=== PATIENT | female | born 1980 | race African-American/Black ===

== ENCOUNTER 2016-03-03 19:22 | Emergency (ER) | payer MEDICAID ==
[2016-03-03 19:27] VITALS: BP 99/61
--- NOTE | 2016-03-03 19:35 | ER Document Report ---
ED Medical Screen (RME) - General Stated Complaint: POSSIBLE ABSCESS Mode of Arrival: Ambulatory Information source: Patient Notes: Patient presents to the emergency department with dental pain and swelling. She reports symptoms started this morning. Denies fever has good airway TRAVEL OUTSIDE OF THE [place] IN LAST 30 DAYS: No - Related Data Allergies/Adverse Reactions: iodine [Iodine] Allergy (Verified 01/31/16 11:02) latex [Latex] Allergy (Verified 01/31/16 11:02) Penicillins Allergy (Verified 01/31/16 11:02) povidone-iodine [From Betadine] Allergy (Verified 01/31/16 11:02) Soap [From Betadine] Allergy (Verified 01/31/16 11:02) Past Medical History Psychiatric Medical History: Reports: Hx Depression Infectious Medical History: Reports: Hx HIV - STATES DX WITH HIV IN 2007 - NOT CURRENTLY ON MEDS -- NOT SEEN BY INFECTIOUS DISEASE IN 1 - 2 YEARS - STATES JUST DID NOT GO BACK. Past Surgical History: Reports: Hx Tubal Ligation - Immunizations Hx Diphtheria, Pertussis, Tetanus Vaccination: No Physical Exam - Vital signs Vitals: Temp Pulse Resp BP Pulse Ox 98.4 F 89 16 99/61 L 98 03/03/16 19:26 03/03/16 19:26 03/03/16 19:26 03/03/16 19:26 03/03/16 19:26 Course - Vital Signs Vital signs: Temp Pulse Resp BP Pulse Ox 98.4 F 89 16 99/61 L 98 03/03/16 19:26 03/03/16 19:26 03/03/16 19:26 03/03/16 19:26 03/03/16 19:26
== END 2016-03-03 22:00 | disposition left against medical advice (07) ==
LOC: ER 19:22
DX: K08.89 Other specified disorders of teeth and supporting structures (principal); Z88.3 Allergy status to other anti-infective agents; Z91.040 Latex allergy status; Z88.0 Allergy status to penicillin; Z21 Asymptomatic human immunodeficiency virus [HIV] infection status; Z53.20 Procedure and treatment not carried out because of patient's decision for unspecified reasons
CPT/HCPCS: 99281

== ENCOUNTER 2016-03-23 17:34 | Emergency (ER) | payer MEDICAID ==
--- NOTE | 2016-03-23 18:04 | ER Document Report ---
ED Medical Screen (RME) - General Stated Complaint: SORE THROAT, SWELLING Mode of Arrival: Ambulatory Information source: Patient Notes: Patient complains of white patches to back throat. Patient complains of sore throat for one week. Patient with what appears to be fresh to the posterior pharynx. Patient does not take any antiviral medication. No fever. Patient mildly tachycardic in triage. Patient cachectic in appearance. hx: HIV I have greeted and performed a rapid initial assessment of this patient. A comprehensive ED assessment and evaluation of the patient, analysis of test results and completion of the medical decision making process will be conducted by additional ED providers. TRAVEL OUTSIDE OF THE [place] IN LAST 30 DAYS: No - Related Data Allergies/Adverse Reactions: iodine [Iodine] Allergy (Verified 01/31/16 11:02) latex [Latex] Allergy (Verified 01/31/16 11:02) Penicillins Allergy (Verified 01/31/16 11:02) povidone-iodine [From Betadine] Allergy (Verified 01/31/16 11:02) Soap [From Betadine] Allergy (Verified 01/31/16 11:02) Past Medical History Renal/ Medical History: Denies: Hx Peritoneal Dialysis Psychiatric Medical History: Reports: Hx Depression Infectious Medical History: Reports: Hx HIV - STATES DX WITH HIV IN 2007 - NOT CURRENTLY ON MEDS -- NOT SEEN BY INFECTIOUS DISEASE IN 1 - 2 YEARS - STATES JUST DID NOT GO BACK. Past Surgical History: Reports: Hx Tubal Ligation - Immunizations Hx Diphtheria, Pertussis, Tetanus Vaccination: No Physical Exam - Vital signs Vitals: Temp Pulse Resp BP Pulse Ox 98.6 F 113 H 16 90/57 L 97 03/23/16 17:54 03/23/16 17:54 03/23/16 17:54 03/23/16 17:54 03/23/16 17:54 - General Notes: Thrush to the posterior pharynx Course - Vital Signs Vital signs: Temp Pulse Resp BP Pulse Ox 98.6 F 113 H 16 90/57 L 97 03/23/16 17:54 03/23/16 17:54 03/23/16 17:54 03/23/16 17:54 03/23/16 17:54
[2016-03-23 19:02] LABS: HEMATOCRIT 28.3 % (36.0-47.0); HEMOGLOBIN 9.6 g/dL (12.0-15.5); HGB HCT DIFFERENCE 0.5; MEAN CORPUSCULAR HEMOGLOBIN 29.1 pg (27.0-33.4); MEAN CORPUSCULAR HGB CONC 33.8 g/dL (32.0-36.0); MEAN CORPUSCULAR VOLUME 86 fl (80-97); RED BLOOD COUNT 3.28 10^6/uL (3.72-5.28); RED CELL DISTRIBUTION WIDTH 13.4 % (11.5-14.0); WHITE BLOOD COUNT 2.2 10^3/uL (4.0-10.5)
[2016-03-23 19:12] LABS: ALANINE AMINOTRANSFERASE 25 U/L (9-52); ALKALINE PHOSPHATASE 72 U/L (38-126); ANION GAP 10 (5-19); ASPARTATE AMINO TRANSFERASE 38 U/L (14-36); BILIRUBIN,TOTAL 0.6 mg/dL (0.2-1.3); BLOOD UREA NITROGEN 11 mg/dL (7-20); CARBON DIOXIDE 26 mmol/L (22-30); CHLORIDE 105 mmol/L (98-107); CREATININE RESULT 0.83 mg/dL (0.52-1.25); GLUCOSE 99 mg/dL (75-110); SODIUM 141.2 mmol/L (137-145); TOTAL PROTEIN 7.7 g/dL (6.3-8.2)
[2016-03-23 19:20] LABS: POTASSIUM 2.9 mmol/L (3.6-5.0)
[2016-03-23 19:29] LABS: BAND NEUTROPHILS % (MANUAL) 2 % (3-5); BASOPHILS % (MANUAL) 0 % (0-2); EOSINOPHILS % (MANUAL) 0 % (0-6); LYMPHOCYTES % (MANUAL) 16 % (13-45); TOTAL CELLS COUNTED 100
[2016-03-23 19:31] LABS: OVALOCYTES SLIGHT; POIKILOCYTOSIS SLIGHT; TEAR DROP CELLS SLIGHT
[2016-03-23 19:48] LABS: APPEARANCE,URINE SLIGHTLY-CLOUDY; BILIRUBIN,URINE NEGATIVE (NEGATIVE); GLUCOSE, URINE NEGATIVE (NEGATIVE); KETONES,URINE NEGATIVE (NEGATIVE); LEUKOCYTE ESTERASE,URINE TRACE (NEGATIVE); NITRITE,URINE NEGATIVE (NEGATIVE); PROTEIN,URINE 100 mg/dL (NEGATIVE); URINE SPECIFIC GRAVITY 1.028
[2016-03-23] MEDS ORDERED: POTASSIUM CHLORIDE 20 MEQ/15 ML UDCUP PO ONE (20:44)
--- NOTE | 2016-03-23 21:59 | ER Document Report ---
ED Oral Problem - General Chief Complaint: Sore Throat Stated Complaint: SORE THROAT, SWELLING Mode of Arrival: Ambulatory Notes: patient is a 35 year old female p/w white substance all over the back of her throat and painful swallowing. She state she has had these symptoms for about one week. Denies nausea, vomiting, fevers, headache, nasal congestion, body aches. Patient has a known history of HIV but is not taking any antivirals. She has been noncompliant with follow up in [facility] due to issues with transportation Otherwise, denies any other additional medical problems and denies any daily medications, does not have a PCP TRAVEL OUTSIDE OF THE [place] IN LAST 30 DAYS: No - Related Data Allergies/Adverse Reactions: iodine [Iodine] Allergy (Verified 01/31/16 11:02) latex [Latex] Allergy (Verified 01/31/16 11:02) Penicillins Allergy (Verified 01/31/16 11:02) povidone-iodine [From Betadine] Allergy (Verified 01/31/16 11:02) Soap [From Betadine] Allergy (Verified 01/31/16 11:02) Past Medical History - General Information source: Patient - Social History Smoking Status: Unknown if Ever Smoked Family History: Hypertension, Malignancy Patient has suicidal ideation: No Patient has homicidal ideation: No Renal/ Medical History: Denies: Hx Peritoneal Dialysis Psychiatric Medical History: Reports: Hx Depression Infectious Medical History: Reports: Hx HIV - STATES DX WITH HIV IN 2007 - NOT CURRENTLY ON MEDS -- NOT SEEN BY INFECTIOUS DISEASE IN 1 - 2 YEARS - STATES JUST DID NOT GO BACK. Past Surgical History: Reports: Hx Tubal Ligation - Immunizations Hx Diphtheria, Pertussis, Tetanus Vaccination: No Review of Systems - Review of Systems Constitutional: No symptoms reported EENT: See HPI Cardiovascular: No symptoms reported Respiratory: No symptoms reported Gastrointestinal: No symptoms reported Genitourinary: No symptoms reported Female Genitourinary: No symptoms reported Musculoskeletal: No symptoms reported Skin: No symptoms reported Hematologic/Lymphatic: No symptoms reported Neurological/Psychological: No symptoms reported Physical Exam - Vital signs Vitals: Temp Pulse Resp BP Pulse Ox 98.6 F 113 H 16 90/57 L 97 03/23/16 17:54 03/23/16 17:54 03/23/16 17:54 03/23/16 17:54 03/23/16 17:54 - General General appearance: Appears well In distress: None Notes: Thin, cachectic - HEENT Head: Normocephalic, Atraumatic Eyes: Normal Conjunctiva: Normal Ears: Normal Nasal: Normal Mouth/Lips: Normal Pharynx: Other - white exudate covering posterior pharynx, tonsils, uvula and roof of mouth. able to scape of without difficulty or erythematous base off the roof of her mouth Neck: Normal. No: Anterior cervical chain, Posterior cervical chain - Respiratory Respiratory status: No respiratory distress Chest status: Nontender Breath sounds: Normal Chest palpation: Normal - Cardiovascular Rhythm: Regular Heart sounds: Normal auscultation, S1 appreciated, S2 appreciated Gallop: None auscultated Pulses: Normal: Radial Normal capillary refill: Yes - Abdominal Inspection: Normal Distension: No distension Bowel sounds: Normal Tenderness: Nontender Organomegaly: No organomegaly - Extremities General upper extremity: Normal inspection, Normal strength, Other - very thin with minimal muscle mass General lower extremity: Normal inspection, Normal strength, Other - Neurological Neuro grossly intact: Yes Cognition: Normal Orientation: AAOx4 [place] Coma Scale Eye Opening: Spontaneous [place] Coma Scale Verbal: Oriented Speech: Normal - Psychological Associated symptoms: Normal affect, Normal mood - Skin Skin Temperature: Warm Skin Moisture: Dry Skin Color: Normal Skin Turgor: Elastic Skin irregularity: Lesion Location of irregularity: Generalized Character of irregularity: Macular Course - Re-evaluation Re-evalutation: 03/23/16 22:30 patient is a 35 year old female PMH significant for unmanaged AIDS who is HDS, NAD and afebrile. history, physical exam and labs reveal mild hypokalemia, oral and esophageal candidiasis and UTI. Hypokalemia treated with PO and encouraged to incorporate into her diet. Will d/c home with PO nystatin and bactrim. Since patient has been noncompliant with HIV follow up, her CDA counts are likely to be very low. Have discussed with patient the importance of following up with [facility] as well as receiving aid from [facility] for [facility]. Patient expresses understanding and agrees with plan. - Vital Signs Vital signs: Temp Pulse Resp BP Pulse Ox 98.1 F 91 16 94/61 L 99 03/23/16 21:38 03/23/16 21:38 03/23/16 21:38 03/23/16 21:38 03/23/16 21:38 - Laboratory Result Diagrams: 03/23/16 18:35 03/23/16 18:35 Laboratory results interpreted by me: 03/23/16 03/23/16 03/23/16 18:35 18:35 18:35 WBC 2.2 L RBC 3.28 L Hgb 9.6 L Hct 28.3 L Plt Count 91 L Band Neutrophils % 2 L Abs Lymphs (Manual) 0.4 L Potassium 2.9 L* AST 38 H Urine Protein 100 H Urine Blood MODERATE H Urine Urobilinogen 4.0 H Ur Leukocyte Esterase TRACE H Urine Ascorbic Acid 20 H Discharge - Discharge Clinical Impression: Thrush of mouth and esophagus UTI (urinary tract infection) Qualifiers: Urinary tract infection type: acute cystitis Hematuria presence: without hematuria Qualified Code(s): N30.00 - Acute cystitis without hematuria Condition: Stable Disposition: HOME, SELF-CARE Instructions: Oral Thrush ([facility]), Nystatin ([facility]), Urinary Tract Infection ([facility]) , Trimethoprim-Sulfa ([facility]) Additional Instructions: -Please call [facility] to set up an appointment with Infectious Disease to be evaluated for your HIV/AIDS status [facility] Department of Infectious Disease [address] [place] [address] The HIV Care Team [facility] [place] [address] Office -For transportation, please call [facility] Department of Check Examiner for information on Medicaid transport -If you need assistance for other resources (ie transportation), you can call [facility] Social department at Prescriptions: Nystatin [Mycostatin 500,000 Unit/5 ml Susp Udcup] 500,000 unit PO QID #20 udc Sulfamethoxazole/Trimethoprim [Bactrim Ds Tablet] 1 each PO BID 5 Days
[2016-03-23] MEDS ORDERED: NYSTATIN 500000 UNIT/5 ML UDCUP PO ONE (22:24)
[2016-03-23] MEDS ORDERED: SULFAMETHOXAZOLE/TRIMETHOPRIM 800-160 MG TABLET PO ONE (22:25)
[2016-03-23 23:02] VITALS: BP 98/55
== END 2016-03-23 22:59 | disposition home or self-care (01) ==
LOC: ER 17:34
DX: N30.00 Acute cystitis without hematuria (principal); B37.0 Candidal stomatitis; B37.81 Candidal esophagitis; J02.9 Acute pharyngitis, unspecified
CPT/HCPCS: 99283; 36415; 87040; 87070; 87086; 87880; 83735; 84703; 85025; 80053; 81001; J3490 ×3

== ENCOUNTER 2016-04-25 10:33 | Emergency (ER) | payer MEDICAID ==
[2016-04-25] MEDS ORDERED: ONDANSETRON 4 MG TAB.RAPDIS PO ONE (10:38)
[2016-04-25] MEDS ORDERED: NORMAL SALINE 1000 ML 1,000 ML IV ONE ×2 (10:40→13:14)
[2016-04-25] MEDS ORDERED: ONDANSETRON HCL INJ/PF 4 MG/2 ML SDV IV ONE (10:40)
--- NOTE | 2016-04-25 10:41 | ER Document Report ---
ED Medical Screen (RME) - General Stated Complaint: VOMITING, DIZZINESS Mode of Arrival: Ambulatory Information source: Patient Notes: Patient presents with vomiting for the past 3 days. Report her boys were sick with the same virus. She reports she is able to drink fluids without problems. Anytime she eats she vomits. Denies fever and diarrhea. Was sick with the same sx three weeks, LMP at the beginning of Mar.. HR 120-140. Denies abdominal/ chest pain. I have greeted and performed a rapid initial assessment of this patient. A comprehensive ED assessment and evaluation of the patient, analysis of test results and completion of the medical decision making process will be conducted by additional ED providers. TRAVEL OUTSIDE OF THE [place] IN LAST 30 DAYS: No - Related Data Allergies/Adverse Reactions: iodine [Iodine] Allergy (Verified 04/25/16 10:38) latex [Latex] Allergy (Verified 04/25/16 10:38) Penicillins Allergy (Verified 04/25/16 10:38) povidone-iodine [From Betadine] Allergy (Verified 04/25/16 10:38) Soap [From Betadine] Allergy (Verified 04/25/16 10:38) Past Medical History Renal/ Medical History: Denies: Hx Peritoneal Dialysis Psychiatric Medical History: Reports: Hx Depression Infectious Medical History: Reports: Hx HIV - STATES DX WITH HIV IN 2007 - NOT CURRENTLY ON MEDS -- NOT SEEN BY INFECTIOUS DISEASE IN 1 - 2 YEARS - STATES JUST DID NOT GO BACK. Past Surgical History: Reports: Hx Tubal Ligation - Immunizations Hx Diphtheria, Pertussis, Tetanus Vaccination: No
--- NOTE | 2016-04-25 10:52 | ER Document Report ---
ED GI/ - General Chief Complaint: Nausea/Vomiting Stated Complaint: VOMITING, DIZZINESS Mode of Arrival: Ambulatory Notes: The patient is a 35 her old female, past medical history HIV (unknown CD4/viral load, hasn't seen ID doctor in 2 years and not on medications, appointment in one month with Kyung BENNETT), presents with 3 days of nausea and vomiting about 3 times daily. Her 2 sons has similar symptoms. She denies fevers, hematemesis, abdominal pain, chest pain, shortness of breath, cough, diarrhea or urinary symptoms. TRAVEL OUTSIDE OF THE [place] IN LAST 30 DAYS: No - Related Data Allergies/Adverse Reactions: iodine [Iodine] Allergy (Verified 04/25/16 10:38) latex [Latex] Allergy (Verified 04/25/16 10:38) Penicillins Allergy (Verified 04/25/16 10:38) povidone-iodine [From Betadine] Allergy (Verified 04/25/16 10:38) Soap [From Betadine] Allergy (Verified 04/25/16 10:38) Past Medical History - General Information source: Patient - Social History Smoking Status: Current Every Day Smoker Chew tobacco use (# tins/day): No Frequency of alcohol use: None Drug Abuse: None Family History: Hypertension, Malignancy Patient has suicidal ideation: No Patient has homicidal ideation: No Renal/ Medical History: Denies: Hx Peritoneal Dialysis Psychiatric Medical History: Reports: Hx Depression Infectious Medical History: Reports: Hx HIV - STATES DX WITH HIV IN 2007 - NOT CURRENTLY ON MEDS -- NOT SEEN BY INFECTIOUS DISEASE IN 1 - 2 YEARS - STATES JUST DID NOT GO BACK. Past Surgical History: Reports: Hx Tubal Ligation - Immunizations Hx Diphtheria, Pertussis, Tetanus Vaccination: No Review of Systems - Review of Systems Notes: REVIEW OF SYSTEMS: CONSTITUTIONAL: -fevers, -chills EENT: -eye pain, -difficulty swallowing, -nasal congestion CARDIOVASCULAR:-chest pain, -syncope. RESPIRATORY: -cough, -SOB GASTROINTESTINAL: -abdominal pain, +nausea, +vomiting, -diarrhea GENITOURINARY: -dysuria, -hematuria MUSCULOSKELETAL: -back pain, -neck pain SKIN: -rash or skin lesions. HEMATOLOGIC: -easy bruising or bleeding. LYMPHATIC: -swollen, enlarged glands. NEUROLOGICAL: +lightheadedness, -altered mental status or loss of consciousness , -headache, -neurologic symptoms PSYCHIATRIC: -anxiety, -depression. ALL OTHER SYSTEMS REVIEWED AND NEGATIVE. Physical Exam - Vital signs Vitals: Resp 11 L 04/25/16 10:58 - Notes Notes: PHYSICAL EXAMINATION: GENERAL: Well-appearing, well-nourished and in no acute distress. HEAD: Atraumatic, normocephalic. EYES: Pupils equal round and reactive to light, extraocular movements intact, sclera anicteric, conjunctiva are normal. ENT: nares patent, oropharynx clear without exudates. Moist mucous membranes. NECK: Normal range of motion, supple without lymphadenopathy LUNGS: Breath sounds clear to auscultation bilaterally and equal. No wheezes rales or rhonchi. HEART: Tachycardic. Regular rhythm. ABDOMEN: Soft, nontender, normoactive bowel sounds. No guarding, no rebound. No masses appreciated. EXTREMITIES: Normal range of motion, no pitting or edema. No cyanosis. NEUROLOGICAL: Cranial nerves grossly intact. Normal speech, normal gait. Normal sensory, motor, and reflex exams. PSYCH: Normal mood, normal affect. SKIN: Warm, Dry, normal turgor, no rashes or lesions noted. Course - Re-evaluation Re-evalutation: 04/25/16 12:22 Pt with no abdominal pain or tenderness. Patient no longer feeling nauseous and is tolerating fluids. She is not feeling lightheaded and is asymptomatic at this time. Repeat abdominal exam reveals no tenderness. Labs and urine are unremarkable other than her potassium is 3.1 which is higher than her prior value of 2.6. Will replete her with potassium and send her home with [facility]. Instructed her to drink plenty of fluids and eat bananas and keep her appointment with [facility] [place]. Given return precautions and she understands. - Vital Signs Vital signs: Temp Pulse Resp BP Pulse Ox 18 95/59 L 100 04/25/16 12:01 04/25/16 12:00 04/25/16 12:01 - Laboratory Result Diagrams: 04/25/16 11:10 04/25/16 11:10 Laboratory results interpreted by me: 04/25/16 04/25/16 04/25/16 10:59 11:10 11:10 RBC 3.02 L Hgb 8.4 L Hct 25.8 L Plt Count 140 L Seg Neuts % (Manual) 82 H Lymphocytes % (Manual) 6 L Abs Lymphs (Manual) 0.3 L Potassium 3.1 L POC Glucose 129 H AST 38 H Urine Protein Urine Ketones Urine Urobilinogen 04/25/16 11:43 RBC Hgb Hct Plt Count Seg Neuts % (Manual) Lymphocytes % (Manual) Abs Lymphs (Manual) Potassium POC Glucose AST Urine Protein >=500 H Urine Ketones TRACE H Urine Urobilinogen 4.0 H - Diagnostic Test Radiology reviewed: Image reviewed, Reports reviewed Radiology results interpreted by me: CXR: NAD - EKG Interpretation by Me EKG shows normal: Sinus rhythm, [place], Intervals, QRS Complexes, ST-T Waves Rate: Tachycardia Discharge - Discharge Clinical Impression: Nausea and vomiting Qualifiers: Vomiting type: unspecified Vomiting Intractability: non-intractable Qualified Code(s): R11.2 - Nausea with vomiting, unspecified Condition: Good Disposition: HOME, SELF-CARE Additional Instructions: VOMITING: Vomiting (or nausea without vomiting) can be caused by many other different problems. It can mean that something's wrong with the stomach, such as ulcers or inflammation or the intestinal tract, such as appendicitis. But it can also be a symptom of a problem that has nothing to do with the stomach or intestines. Vomiting is common with severe headaches, earaches, tonsillitis, and kidney infections, etc. We see it with pneumonia or heart attacks. Drugs can cause nausea and vomiting. Many abdominal problems cause vomiting; for example, gallstones, kidney stones, pancreatitis, and intestinal obstruction ( blocked bowels). In most cases, curing the vomiting depends on fixing the problem that caused it. For temporary relief, we may use an anti-nausea medicine. For home use, we can prescribe suppositories, chewable pills, pills that dissolve in the mouth, or liquid anti-nausea drugs. If the vomiting seems to be caused by a problem in the stomach, acid-suppressing drugs may be prescribed as well. It's important to avoid dehydration. Sip small amounts of clear liquids ( soft drinks, tea, broth, etc) . Try to take fluids frequently even if you are vomiting to prevent dehydration. Take increasing amounts of fluid and when liquids are being consumed successfully, advance to small amounts of bland food (toast, soups, mashed potatoes, etc.) until you are able to resume a regular diet. Avoid aspirin, tobacco, and alcohol. If the vomiting worsens, if the problem that's making you vomit worsens, or if there's evidence of bleeding in the stomach (such as black, tarry stool, or bloody or black vomit), you should return immediately. Also, return if abdominal pain worsens or becomes localized to one area or you develop high fever. Call your doctor if you aren't improved in 24 hours. VIRAL SYNDROME: The physician has diagnosed a viral infection. Viruses not only cause "colds," but can cause many different symptoms including generalized aching, fever, headache, cough, diarrhea, nausea, vomiting, and fatigue. The treatment, for the most part, is simply relief of symptoms. This means that antibiotics are usually not given. Rest, fluids, pain medications and, occasionally, medication for the specific symptoms that are most bothersome will be prescribed. Use good handwashing to avoid passing the virus to others. Shared toys should be cleaned with disinfectant. Clean the toilets, sinks, and counter surfaces in bathrooms. Launder clothing in hot water. Contact the physician if you develop any new or unusual symptoms such as severe headache, stiff neck, high fever, chest pain, productive cough, or shortness of breath. You should be rechecked if you don't see marked improvement within seven to 10 days. INTRAVENOUS (I V) FLUIDS: As part of your care today, you received intravenous (IV) fluids. IV fluids are administered to patients who are dehydrated or to those who have certain chemical (electrolyte) abnormalities that need correcting. ANTINAUSEA MEDICATION: You have been given a medication to suppress nausea and vomiting. This type of medication can be given as a shot, pill, or suppository. It will usually last for many hours. Pills and shots usually last six to eight hours. For the typical illness, only one or two doses of the medication may be necessary. Mild lightheadedness may occur. This type of medicine can cause drowsiness. Do not drive or operate dangerous machinery while under its influence. Do not mix with alcohol. See your doctor at once if you have muscle spasms or tightness, or uncontrollable motions (particularly of the neck, mouth, or jaw). Persistent vomiting or severe lightheadedness should also be evaluated by the physician. FOLLOW-UP CARE: If you have been referred to a physician for follow-up care, call the physician s office for an appointment as you were instructed or within the next two days. If you experience worsening or a significant change in your symptoms, notify the physician immediately or return to the Emergency Department at any time for re-evaluation. HYPOKALEMIA: You have an abnormally decreased level of serum potassium. Hypokalemia may cause weakness, fatigue, or heart rhythm abnormalities. Sometimes there are no symptoms at all. Usually, low serum potassium is due to taking diuretics ( water pills). It can also be due to excessive vomiting or diarrhea. If no obvious cause is evident, further evaluation will be necessary. Treatment is usually oral potassium supplements. Take these exactly as prescribed. You may also want to select foods which are naturally high in potassium -- fruits (such as bananas, cantaloupe, grapes, oranges, prunes, tomatoes), fresh vegetables (potatoes, spinach, beans, peas), orange or tomato juice, tomato pasta sauce, milk, fish (halibut, tuna, salmon, jeremías) A follow-up blood test is usually performed to assure that the potassium is returning to normal. Call the physician if you suffer severe weakness, muscle twitching or cramping, palpitations (pounding or irregular heartbeat), or any other new or alarming symptoms. POTASSIUM: A potassium-containing medication has been prescribed. This is usually used to treat potassium depletion caused by diuretics or by vomiting and diarrhea. This type of medicine is available in many forms, including elixirs, powders, fruity drinks, and pills. If one type is not working out for you, another can be substituted. Potassium can cause stomach upset. This can be prevented by taking it with meals. Do not take more than your doctor recommends. Notify your doctor if you develop repeated vomiting, black or bloody stool , severe weakness or numbness. FOODS HIGH IN POTASSIUM: baked potato with skin 1080 mg tomato pasta sauce, 1 cup 940 sweet potato with skin 690 orange juice, 1 cup 480 northern irish chard 480 tuna, 3 oz 480 cantaloupe, 1 cup 430 banana 420 spinach 420 yogurt, plain, nofat, 6 oz 400 milk, 1 cup 370 watermelon, 2 cups 340 tomato, 1/2 cup 210 Other foods high in potassium are most other fruits and vegetables and fish. FOLLOW-UP CARE: If you have been referred to a physician for follow-up care, call the physician s office for an appointment as you were instructed or within the next two days. If you experience worsening or a significant change in your symptoms, notify the physician immediately or return to the Emergency Department at any time for re-evaluation. Prescriptions: Ondansetron [Zofran Odt 4 mg Tablet] 1 - 2 tab PO Q4H PRN #15 tab.rapdis PRN Reason: For Nausea/Vomiting Referrals: GLADIS STAUFFER MD [Primary Care Provider] - Follow up as needed
[2016-04-25 11:43] LABS: HEMATOCRIT 25.8 % (36.0-47.0); HEMOGLOBIN 8.4 g/dL (12.0-15.5); HGB HCT DIFFERENCE -0.6; MEAN CORPUSCULAR HEMOGLOBIN 27.8 pg (27.0-33.4); MEAN CORPUSCULAR HGB CONC 32.5 g/dL (32.0-36.0); MEAN CORPUSCULAR VOLUME 85 fl (80-97); RED BLOOD COUNT 3.02 10^6/uL (3.72-5.28); RED CELL DISTRIBUTION WIDTH 13.9 % (11.5-14.0); WHITE BLOOD COUNT 4.2 10^3/uL (4.0-10.5)
[2016-04-25 11:49] LABS: VENOUS BLOOD BASE EXCESS 0.1 mmol/L; VENOUS BLOOD HCO3 25.6 mmol/L (20-32); VENOUS BLOOD PCO2 44.5 mmHg (35-63); VENOUS BLOOD PH 7.38 (7.30-7.42)
[2016-04-25 12:00] LABS: ALANINE AMINOTRANSFERASE 23 U/L (9-52); ALBUMIN 3.6 g/dL (3.5-5.0); ALKALINE PHOSPHATASE 56 U/L (38-126); ANION GAP 10 (5-19); ASPARTATE AMINO TRANSFERASE 38 U/L (14-36); BILIRUBIN,TOTAL 0.7 mg/dL (0.2-1.3); BLOOD UREA NITROGEN 16 mg/dL (7-20); CARBON DIOXIDE 26 mmol/L (22-30); CHLORIDE 104 mmol/L (98-107); CREATININE RESULT 0.87 mg/dL (0.52-1.25); GLUCOSE 109 mg/dL (75-110); POTASSIUM 3.1 mmol/L (3.6-5.0); SODIUM 139.7 mmol/L (137-145); TOTAL PROTEIN 7.9 g/dL (6.3-8.2)
[2016-04-25 12:04] LABS: BAND NEUTROPHILS % (MANUAL) 5 % (3-5); BASOPHILS % (MANUAL) 0 % (0-2); EOSINOPHILS % (MANUAL) 0 % (0-6); LYMPHOCYTES % (MANUAL) 6 % (13-45); TOTAL CELLS COUNTED 100
[2016-04-25 12:05] LABS: HYPOCHROMASIA SLIGHT; OVALOCYTES SLIGHT; POIKILOCYTOSIS SLIGHT
[2016-04-25] MEDS ORDERED: POTASSIUM CHLORIDE 20 MEQ/15 ML UDCUP PO ONE (12:05)
[2016-04-25] MEDS ORDERED: POTASSI CL 20 MEQ/50 ML RIDER 50 ML IV ONE (12:06)
[2016-04-25 12:13] LABS: APPEARANCE,URINE SLIGHTLY-CLOUDY; BILIRUBIN,URINE NEGATIVE (NEGATIVE); GLUCOSE, URINE NEGATIVE (NEGATIVE); KETONES,URINE TRACE mg/dL (NEGATIVE); LEUKOCYTE ESTERASE,URINE NEGATIVE (NEGATIVE); NITRITE,URINE NEGATIVE (NEGATIVE); PROTEIN,URINE >=500 mg/dL (NEGATIVE); URINE SPECIFIC GRAVITY 1.019
[2016-04-25] MEDS ORDERED: POTASSIUM CHLORIDE 10 MEQ TABLET.SA PO ONE (12:29)
[2016-04-25 14:05] VITALS: BP 100/69
--- NOTE | 2016-04-25 20:07 | EKG REPORT ---
SEVERITY:- BORDERLINE ECG - SINUS TACHYCARDIA BORDERLINE T ABNORMALITIES, ANT-LAT LEADS : Confirmed by: Isidra Acosta 25-Apr-2016 20:05:48
== END 2016-04-25 14:19 | disposition home or self-care (01) ==
LOC: ER 10:33
DX: R11.2 Nausea with vomiting, unspecified (principal); R00.0 Tachycardia, unspecified; R42 Dizziness and giddiness; F17.200 Nicotine dependence, unspecified, uncomplicated; Z21 Asymptomatic human immunodeficiency virus [HIV] infection status; Z91.040 Latex allergy status; Z88.0 Allergy status to penicillin; Z88.3 Allergy status to other anti-infective agents
CPT/HCPCS: 93005; 99284; 96361; 96374; 36415; 87040; 87086; 82962; 84703; 85025; 80053; 81001; 82803; 83605; 71020; 93010; J2405; J7030

== ENCOUNTER 2016-05-04 09:11 | Inpatient (IN) | payer MEDICAID ==
[2016-05-04] MEDS ORDERED: ONDANSETRON HCL INJ/PF 4 MG/2 ML SDV IV ONE (09:33)
[2016-05-04] MEDS ORDERED: NORMAL SALINE 1000 ML 1,000 ML IV PRN (09:33)
--- NOTE | 2016-05-04 09:35 | ER Document Report ---
ED General - General Stated Complaint: WEAKNESS Mode of Arrival: Medic Information source: Patient, [facility] Records Notes: 35-year-old female history of HIV who has been off her antiretrovirals for the past few months presents with complaints of nausea vomiting for the past one month consistently. Patient denies any fevers denies any diarrhea. Patient notes a 30 pound weight loss in the past month. TRAVEL OUTSIDE OF THE [place] IN LAST 30 DAYS: No - HPI Onset: Other Onset/Duration: Persistent Quality of pain: Achy Severity: Mild Pain Level: 1 Associated symptoms: Nausea, Vomiting Exacerbated by: Denies Relieved by: Denies Similar symptoms previously: Yes Recently seen / treated by doctor: Yes - Related Data Allergies/Adverse Reactions: iodine [Iodine] Allergy (Verified 05/04/16 10:56) latex [Latex] Allergy (Verified 05/04/16 10:56) Penicillins Allergy (Verified 05/04/16 10:56) povidone-iodine [From Betadine] Allergy (Verified 05/04/16 10:56) Soap [From Betadine] Allergy (Verified 05/04/16 10:56) Home Medications: Current Home Medications No Home Medications 05/04/16 [History] Past Medical History - Social History Smoking Status: Never Smoker Cigarette use (# per day): No Chew tobacco use (# tins/day): No Smoking Education Provided: No Family History: Hypertension, Malignancy Renal/ Medical History: Denies: Hx Peritoneal Dialysis Psychiatric Medical History: Reports: Hx Depression Infectious Medical History: Reports: Hx HIV - STATES DX WITH HIV IN 2007 - NOT CURRENTLY ON MEDS -- NOT SEEN BY INFECTIOUS DISEASE IN 1 - 2 YEARS - STATES JUST DID NOT GO BACK. Past Surgical History: Reports: Hx Tubal Ligation - Immunizations Hx Diphtheria, Pertussis, Tetanus Vaccination: No Review of Systems - Review of Systems Notes: REVIEW OF SYSTEMS: CONSTITUTIONAL : Denies fever, chills, or sweats. Denies recent illness. EENT: Denies eye, ear, throat, or mouth pain or symptoms. Denies nasal or sinus congestion or discharge. Denies throat, tongue, or mouth swelling or difficulty swallowing. CARDIOVASCULAR: Denies chest pain. Denies palpitations or racing or irregular heart beat. Denies ankle edema. RESPIRATORY: Denies cough, cold, or chest congestion. Denies shortness of breath, difficulty breathing, or wheezing. GASTROINTESTINAL: Admits nausea vomiting weight loss GENITOURINARY: Denies difficulty urinating, painful urination, burning, frequency, blood in urine, or discharge. FEMALE GENITOURINARY: Denies vaginal bleeding, heavy or abnormal periods, irregular periods. Denies vaginal discharge or odor. MUSCULOSKELETAL: Denies back or neck pain or stiffness. Denies joint pain or swelling. SKIN: Denies rash, lesions or sores. HEMATOLOGIC : Denies easy bruising or bleeding. LYMPHATIC: Denies swollen, enlarged glands. NEUROLOGICAL: Denies confusion or altered mental status. Denies passing out or loss of consciousness. Denies dizziness or lightheadedness. Denies headache. Denies weakness or paralysis or loss of use of either side. Denies problems with gait or speech. Denies sensory loss, numbness, or tingling. Denies seizures. PSYCHIATRIC: Denies anxiety or stress. Denies depression, suicidal ideation, or homicidal ideation. ALL OTHER SYSTEMS REVIEWED AND NEGATIVE. Dictation was performed using [employer] voice recognition software PHYSICAL EXAMINATION: GENERAL: Cachectic appearing female HEAD: Atraumatic, normocephalic. EYES: Pupils equal round and reactive to light, extraocular movements intact, conjunctiva are normal. ENT: Nares patent, oropharynx clear without exudates. Moist mucous membranes. NECK: Normal range of motion, supple without lymphadenopathy LUNGS: Breath sounds clear to auscultation bilaterally and equal. No wheezes rales or rhonchi. HEART: Regular rate and rhythm without murmurs ABDOMEN: Soft, nontender, nondistended abdomen. No guarding, no rebound. No masses appreciated. Female : deferred Musculoskeletal: Normal range of motion, no pitting or edema. No cyanosis. NEUROLOGICAL: Cranial nerves grossly intact. Normal speech, normal gait. Normal sensory, motor exams PSYCH: Normal mood, normal affect. SKIN: Warm, Dry, normal turgor, no rashes or lesions noted. Physical Exam - Vital signs Vitals: Temp Pulse Resp BP Pulse Ox 97.8 F 105 H 20 87/49 L 100 05/04/16 09:17 05/04/16 09:17 05/04/16 09:17 05/04/16 09:17 05/04/16 09:17 Course - Re-evaluation Re-evalutation: 05/04/16 09:34 Patient will be hydrated, there is obvious concerns for aids-related infectious process 05/04/16 12:11 Given how cachectic she is and has not been taking her antiretrovirals, I believe it is appropriate to keep the patient for observation overnight - Vital Signs Vital signs: Temp Pulse Resp BP Pulse Ox 97.8 F 105 H 21 H 105/64 98 05/04/16 09:17 05/04/16 09:17 05/04/16 11:01 05/04/16 11:00 05/04/16 11:01 - Laboratory Result Diagrams: 05/04/16 10:00 05/04/16 10:00 Laboratory results interpreted by me: 05/04/16 05/04/16 10:00 10:00 WBC 3.9 L RBC 3.01 L Hgb 8.3 L Hct 25.4 L RDW 14.2 H Plt Count 114 L Seg Neuts % (Manual) 80 H Band Neutrophils % 7 H Lymphocytes % (Manual) 1 L Metamyelocytes % 1 H Abs Lymphs (Manual) 0.1 L BUN 23 H Est GFR (Non-Af Amer) 58 L AST 47 H Albumin 3.0 L Discharge - Discharge Clinical Impression: Chronic anemia, Human immunodeficiency virus (HIV) infection, Weight loss Nausea and vomiting Qualifiers: Vomiting type: unspecified Vomiting Intractability: non-intractable Qualified Code(s): R11.2 - Nausea with vomiting, unspecified Condition: Fair Disposition: ADMITTED INPATIENT Admitting Provider: Hospitalist Unit Admitted: Medical Floor
[2016-05-04 10:51] LABS: HEMATOCRIT 25.4 % (36.0-47.0); HEMOGLOBIN 8.3 g/dL (12.0-15.5); HGB HCT DIFFERENCE -0.5; MEAN CORPUSCULAR HEMOGLOBIN 27.6 pg (27.0-33.4); MEAN CORPUSCULAR HGB CONC 32.7 g/dL (32.0-36.0); MEAN CORPUSCULAR VOLUME 85 fl (80-97); RED BLOOD COUNT 3.01 10^6/uL (3.72-5.28); RED CELL DISTRIBUTION WIDTH 14.2 % (11.5-14.0); WHITE BLOOD COUNT 3.9 10^3/uL (4.0-10.5)
[2016-05-04 11:15] LABS: ALANINE AMINOTRANSFERASE 34 U/L (9-52); ALKALINE PHOSPHATASE 59 U/L (38-126); ANION GAP 13 (5-19); ASPARTATE AMINO TRANSFERASE 47 U/L (14-36); BILIRUBIN,DIRECT 0.4 mg/dL (0.0-0.4); BILIRUBIN,TOTAL 0.6 mg/dL (0.2-1.3); BLOOD UREA NITROGEN 23 mg/dL (7-20); CALCIUM 8.7 mg/dL (8.4-10.2); CARBON DIOXIDE 22 mmol/L (22-30); CHLORIDE 107 mmol/L (98-107); CREATININE RESULT 1.07 mg/dL (0.52-1.25); GLUCOSE 86 mg/dL (75-110); POTASSIUM 3.7 mmol/L (3.6-5.0); SODIUM 141.7 mmol/L (137-145); TOTAL PROTEIN 6.7 g/dL (6.3-8.2)
[2016-05-04 11:32] LABS: BAND NEUTROPHILS % (MANUAL) 7 % (3-5); BASOPHILS % (MANUAL) 0 % (0-2); EOSINOPHILS % (MANUAL) 0 % (0-6); HYPOCHROMASIA SLIGHT; LYMPHOCYTES % (MANUAL) 1 % (13-45); OVALOCYTES 2+; PLATELET CLUMPS PRESENT; POIKILOCYTOSIS 2+; POLYCHROMASIA SLIGHT; TOTAL CELLS COUNTED 100
[2016-05-04] MEDS ORDERED: DIPHENHYDRAMINE HCL 50 MG/ML VIAL IV ONE (12:44)
[2016-05-04] MEDS ORDERED: METHYLPREDNISOLONE INJ 125 MG/2 ML SDV IV ONE (12:44)
--- NOTE | 2016-05-04 13:09 | EKG REPORT ---
SEVERITY:- ABNORMAL ECG - SINUS TACHYCARDIA NONSPECIFIC T ABNORMALITIES, ANT-LAT LEADS : Confirmed by: Neil Gardiner MD 04-May-2016 13:09:13
[2016-05-04 14:46] LABS: HIV 1/2 AB DIFFERENTIATION HIV PANEL
--- NOTE | 2016-05-04 15:50 | PDOC H&P ---
History of Present Illness Admission Date/PCP: 05/04/16 13:43 GLADIS STAUFFER MD Infectious Disease in [place], [place] Patient complains of: Vomiting and nausea 1 month with 30 pound weight loss History of Present Illness: JOSE LUIS GU is a 35 year old female with a past medical history of HIV who has been off her antiretrovirals for the past few months presents with complaints of nausea vomiting for the past one month consistently. Patient denies any fevers denies any diarrhea. Patient notes a 30 pound weight loss in the past month. The patient received 2 liters of fluid while in the emergency department as well as anti-medics. The patient is noted to be pancytopenic, dehydrated, with low-grade fever. The patient has been referred to the hospitalist remission and management. Past Medical History Psychiatric Medical History: Reports: Depression Hematology: Reports: Anemia Infectious Medical History: Reports: HIV - STATES DX WITH HIV IN 2007 - NOT CURRENTLY ON MEDS -- NOT SEEN BY INFECTIOUS DISEASE IN 1 - 2 YEARS - STATES JUST DID NOT GO BACK. Past Surgical History Past Surgical History: Reports: Tubal Ligation Social History Information Source: Patient Occupation: Unemployed Lives with: Family Smoking Status: Never Smoker Frequency of Alcohol Use: None Hx Recreational Drug Use: No Hx Prescription Drug Abuse: No - Advance Directive Resuscitation Status: Full Code Surrogate healthcare decision maker:: Sister Family History Family History: Hypertension, Malignancy Parental Family History Reviewed: Yes Children Family History Reviewed: Yes Sibling(s) Family History Reviewed.: Yes Medication/Allergy Home Medications: No Home Medications 05/04/16 Allergies/Adverse Reactions: iodine [Iodine] Allergy (Verified 05/04/16 10:56) latex [Latex] Allergy (Verified 05/04/16 10:56) Penicillins Allergy (Verified 05/04/16 10:56) povidone-iodine [From Betadine] Allergy (Verified 05/04/16 10:56) Soap [From Betadine] Allergy (Verified 05/04/16 10:56) Review of Systems Constitutional: PRESENT: fever(s), headache(s), weight loss - Approximately 15- 30 pounds. ABSENT: chills, weight gain Eyes: ABSENT: visual disturbances Ears: ABSENT: hearing changes Cardiovascular: ABSENT: chest pain, dyspnea on exertion, edema, orthropnea, palpitations Respiratory: ABSENT: cough, hemoptysis Gastrointestinal: PRESENT: nausea, vomiting. ABSENT: abdominal pain, constipation, diarrhea, hematemesis, hematochezia Genitourinary: ABSENT: dysuria, hematuria Musculoskeletal: ABSENT: joint swelling Integumentary: ABSENT: rash, wounds Neurological: PRESENT: weakness. ABSENT: abnormal gait, abnormal speech, confusion, dizziness, focal weakness, syncope Psychiatric: ABSENT: anxiety, depression, homidical ideation, suicidal ideation Endocrine: ABSENT: cold intolerance, heat intolerance, polydipsia, polyuria Hematologic/Lymphatic: ABSENT: easy bleeding, easy bruising Physical Exam Vital Signs: Temp Pulse Resp BP Pulse Ox 99.5 F 94 16 95/48 L 96 05/04/16 14:26 05/04/16 14:26 05/04/16 14:26 05/04/16 14:05/04/16 14:26 General appearance: PRESENT: no acute distress, cooperative, thin Exam: Frail cachectic Head exam: PRESENT: atraumatic, normocephalic Eye exam: PRESENT: conjunctiva pink, EOMI, PERRLA. ABSENT: scleral icterus Ear exam: PRESENT: normal external ear exam Mouth exam: PRESENT: moist, tongue midline Neck exam: ABSENT: carotid bruit, JVD, lymphadenopathy, thyromegaly Respiratory exam: PRESENT: clear to auscultation rudy. ABSENT: rales, rhonchi, wheezes Cardiovascular exam: PRESENT: RRR. ABSENT: diastolic murmur, rubs, systolic murmur Pulses: PRESENT: normal dorsalis pedis pul Vascular exam: PRESENT: normal capillary refill GI/Abdominal exam: PRESENT: normal bowel sounds, soft. ABSENT: distended, guarding, mass, organolmegaly, rebound, tenderness Rectal exam: PRESENT: deferred Extremities exam: PRESENT: full ROM. ABSENT: calf tenderness, clubbing, pedal edema Neurological exam: PRESENT: alert, awake, oriented to person, oriented to place , oriented to time, oriented to situation, CN II-XII grossly intact. ABSENT: motor sensory deficit Psychiatric exam: PRESENT: appropriate affect, normal mood. ABSENT: homicidal ideation, suicidal ideation Skin exam: PRESENT: dry, intact, warm. ABSENT: cyanosis, rash Results Laboratory Results: Labs- Last Values WBC 3.9 10^3/uL (4.0-10.5) L 05/04/16 10:00 RBC 3.01 10^6/uL (3.72-5.28) L 05/04/16 10:00 Hgb 8.3 g/dL (12.0-15.5) L 05/04/16 10:00 Hct 25.4 % (36.0-47.0) L 05/04/16 10:00 MCV 85 fl (80-97) 05/04/16 10:00 MCH 27.6 pg (27.0-33.4) 05/04/16 10:00 MCHC 32.7 g/dL (32.0-36.0) 05/04/16 10:00 RDW 14.2 % (11.5-14.0) H 05/04/16 10:00 Plt Count 114 10^3/uL (150-450) L 05/04/16 10:00 Total Counted 100 05/04/16 10:00 Seg Neutrophils % Not Reportable 05/04/16 10:00 Seg Neuts % (Manual) 80 % (42-78) H 05/04/16 10:00 Band Neutrophils % 7 % (3-5) H 05/04/16 10:00 Lymphocytes % Not Reportable 05/04/16 10:00 Lymphocytes % (Manual) 1 % (13-45) L 05/04/16 10:00 Atypical Lymphs % 1 % (0) 05/04/16 10:00 Monocytes % Not Reportable 05/04/16 10:00 Monocytes % (Manual) 10 % (3-13) 05/04/16 10:00 Eosinophils % Not Reportable 05/04/16 10:00 Eosinophils % (Manual) 0 % (0-6) 05/04/16 10:00 Basophils % Not Reportable 05/04/16 10:00 Basophils % (Manual) 0 % (0-2) 05/04/16 10:00 Metamyelocytes % 1 % (0) H 05/04/16 10:00 Absolute Neutrophils Not Reportable 05/04/16 10:00 Abs Neuts (Manual) 3.4 10^3/uL (1.7-8.2) 05/04/16 10:00 Absolute Lymphocytes Not Reportable 05/04/16 10:00 Abs Lymphs (Manual) 0.1 10^3/uL (0.5-4.7) L 05/04/16 10:00 Absolute Monocytes Not Reportable 05/04/16 10:00 Abs Monocytes (Manual) 0.4 10^3/uL (0.1-1.4) 05/04/16 10:00 Absolute Eosinophils Not Reportable 05/04/16 10:00 Absolute Eos (Manual) 0.0 10^3/uL (0.0-0.6) 05/04/16 10:00 Absolute Basophils Not Reportable 05/04/16 10:00 Abs Basophils (Manual) 0.0 10^3/uL (0.0-0.2) 05/04/16 10:00 Dohle Bodies PRESENT 05/04/16 10:00 Clumped Platelets PRESENT 05/04/16 10:00 Large Platelets PRESENT 05/04/16 10:00 Platelet Comment Not Reportable 05/04/16 10:00 Polychromasia SLIGHT 05/04/16 10:00 Hypochromasia SLIGHT 05/04/16 10:00 Poikilocytosis 2+ 05/04/16 10:00 Ovalocytes 2+ 05/04/16 10:00 Sodium 141.7 mmol/L (137-145) 05/04/16 10:00 Potassium 3.7 mmol/L (3.6-5.0) 05/04/16 10:00 Chloride 107 mmol/L (98-107) 05/04/16 10:00 Carbon Dioxide 22 mmol/L (22-30) 05/04/16 10:00 Anion Gap 13 (5-19) 05/04/16 10:00 BUN 23 mg/dL (7-20) H 05/04/16 10:00 Creatinine 1.07 mg/dL (0.52-1.25) 05/04/16 10:00 Est GFR ( Amer) > 60 (>60) 05/04/16 10:00 Est GFR (Non-Af Amer) 58 (>60) L 05/04/16 10:00 Glucose 86 mg/dL (75-110) 05/04/16 10:00 Calcium 8.7 mg/dL (8.4-10.2) 05/04/16 10:00 Total Bilirubin 0.6 mg/dL (0.2-1.3) 05/04/16 10:00 Direct Bilirubin 0.4 mg/dL (0.0-0.4) 05/04/16 10:00 Indirect Bilirubin Not Reportable 05/04/16 10:00 Neonat Total Bilirubin Not Reportable 05/04/16 10:00 AST 47 U/L (14-36) H 05/04/16 10:00 ALT 34 U/L (9-52) 05/04/16 10:00 Alkaline Phosphatase 59 U/L (38-126) 05/04/16 10:00 Total Protein 6.7 g/dL (6.3-8.2) 05/04/16 10:00 Albumin 3.0 g/dL (3.5-5.0) L 05/04/16 10:00 Lipase 171.5 U/L (23-300) 05/04/16 10:00 Impressions: Abdomen/Pelvis CT 05/04/16 12:11 IMPRESSION: Possible noncalcified gallstones. Trace pericholecystic fluid. Consider ultrasound greater detail. Patchy right basilar infiltrate/atelectatic change. Likely small hiatus hernia. Assessment & Plan - Diagnosis (1) HIV (human immunodeficiency virus infection) Is this a current diagnosis for this admission?: YesPlan: Will obtain CD4 and viral load. Will obtain to obtain records from infectious disease. (2) Nausea & vomiting Qualifiers: Vomiting type: unspecified Vomiting Intractability: non-intractable Qualified Code(s): R11.2 - Nausea with vomiting, unspecified Is this a current diagnosis for this admission?: YesPlan: Will admit for hydration as well as anti-medics. Will obtain right upper quadrant ultrasound given the patient's elevation in LFT and previous findings of possible gallstones. Have a high suspicion of AIDS given the patient's overall clinical picture and noncompliance. (3) Dehydration Is this a current diagnosis for this admission?: YesPlan: Will continue to hydrate Selected Entries 05/04/16 05/04/16 09:17 14:26 Temperature 99.5 F Blood Pressure 87/49 L 95/48 L 04/25/16 05/04/16 05/04/16 11:43 10:00 10:00 WBC 3.9 L Hgb 8.3 L Hct 25.4 L BUN 23 H Urine Protein >=500 H Urine Ketones TRACE H (4) Pancytopenia Is this a current diagnosis for this admission?: YesPlan: Most likely secondary to the above. Will obtain urine and blood culture this may be specifically secondary to HIV. (5) Anemia of chronic disease Is this a current diagnosis for this admission?: Yes (6) Noncompliance Is this a current diagnosis for this admission?: Yes - Time Time Spent: 50 to 70 Minutes Medications reviewed and adjusted accordingly: Yes Disposition: The patient is a full code. Pending patient's symptomatology and diagnostic findings will reevaluate in the a.m. - Inpatient Certification Based on my medical assessment, after consideration of the patient's comorbidities, presenting symptoms, or acuity I expect that the services needed warrant INPATIENT care.: Yes I certify that my determination is in accordance with my understanding of Medicare's requirements for reasonable and necessary INPATIENT services [42 CFR 412.3e].: Yes Medical Necessity: Need For IV Fluids, Need For Continuous Telemetry Monitoring Post Hospital Care: D/C or Transfer Summary
[2016-05-04] MEDS: POTASSI CL 20 MEQ/D5-1/2NS 1L 1,000 ML IV PRN (16:11)
[2016-05-04] MEDS: ONDANSETRON HCL INJ/PF 4 MG/2 ML SDV IV PRN ×2 (17:59→21:56)
[2016-05-04 19:07] LABS: APPEARANCE,URINE SLIGHTLY-CLOUDY; BILIRUBIN,URINE NEGATIVE (NEGATIVE); GLUCOSE, URINE NEGATIVE (NEGATIVE); KETONES,URINE 20 mg/dL (NEGATIVE); LEUKOCYTE ESTERASE,URINE TRACE (NEGATIVE); NITRITE,URINE NEGATIVE (NEGATIVE); PROTEIN,URINE 100 mg/dL (NEGATIVE); URINE SPECIFIC GRAVITY 1.031; UROBILINOGEN,URINE NEGATIVE mg/dL (<2.0)
[2016-05-04 19:19] LABS: URINE BARBITURATES SCREEN NEGATIVE; URINE METHADONE SCREEN NEGATIVE; URINE OPIATES LOW NEGATIVE; URINE PHENCYCLIDINE SCREEN NEGATIVE
[2016-05-04] MEDS ORDERED: PHARMACY COMMUNICATION ORDER MC SCH (19:45)
[2016-05-04] MEDS ORDERED: AZTREONAM INJ 1 GM VIAL IV SCH (19:45)
[2016-05-04] MEDS: AZTREONAM 1 GM in DEXTROSE 5%-WATER 50 ML IV SCH (21:56)
[2016-05-05 06:51] LABS: HEMATOCRIT 20.8 % (36.0-47.0); HGB HCT DIFFERENCE -0.1; MEAN CORPUSCULAR HEMOGLOBIN 27.9 pg (27.0-33.4); MEAN CORPUSCULAR HGB CONC 33.2 g/dL (32.0-36.0); MEAN CORPUSCULAR VOLUME 84 fl (80-97); RED BLOOD COUNT 2.48 10^6/uL (3.72-5.28); WHITE BLOOD COUNT 3.2 10^3/uL (4.0-10.5)
[2016-05-05 06:59] LABS: HEMOGLOBIN 6.9 g/dL (12.0-15.5)
[2016-05-05 07:10] LABS: ANION GAP 10 (5-19); BLOOD UREA NITROGEN 14 mg/dL (7-20); CALCIUM 7.7 mg/dL (8.4-10.2); CARBON DIOXIDE 21 mmol/L (22-30); CHLORIDE 111 mmol/L (98-107); CREATININE RESULT 0.82 mg/dL (0.52-1.25); GLUCOSE 96 mg/dL (75-110); MAGNESIUM 1.5 mg/dL (1.6-2.3); POTASSIUM 3.9 mmol/L (3.6-5.0); SODIUM 141.7 mmol/L (137-145)
[2016-05-05] MEDS: POTASSI CL 20 MEQ/D5-1/2NS 1L 1,000 ML IV PRN (07:32)
[2016-05-05] MEDS: ONDANSETRON HCL INJ/PF 4 MG/2 ML SDV IV PRN (09:41)
[2016-05-05] MEDS: AZTREONAM 1 GM in DEXTROSE 5%-WATER 50 ML IV SCH (09:42)
[2016-05-05] MEDS ORDERED: DIPHENHYDRAMINE HCL 25 MG CAPSULE PO PRN (10:02)
[2016-05-05] MEDS ORDERED: ACETAMINOPHEN 325 MG TABLET PO PRN (10:02)
[2016-05-05] MEDS ORDERED: NORMAL SALINE 250 ML IV PRN ×2 (10:02)
[2016-05-05] MEDS ORDERED: LEVOFLOXACIN 750 MG/D5W RTU 750 MG/150 ML RTUPB IV SCH (15:00)
--- NOTE | 2016-05-05 17:12 | PDOC PROGRESS REPORT ---
Subjective Progress Note for:: 05/05/16 Subjective:: The patient was seen earlier today on rounds. Nausea is improved with Zofran. The patient denies any vomiting, diarrhea, shortness of breath, dizziness, chest pain, heart palpitations, fevers, or chills. The patient has remained afebrile. Blood pressures have been in a good range. When prompted the patient voices no other concerns at this time. Review of systems: The rest of the review of systems is negative. Physical Exam Vital Signs: Temp Pulse Resp BP Pulse Ox 97.7 F 87 16 87/51 L 99 05/05/16 12:00 05/05/16 12:00 05/05/16 12:00 05/05/16 12:00 05/05/16 12:00 Intake & Output 05/03/16 05/04/16 05/05/16 23:59 23:59 23:59 Intake Total 9 650 Output Total 1300 Balance 9 -650 Weight 48.2 kg General appearance: PRESENT: no acute distress, cooperative, thin Exam: Frail cachectic Head exam: PRESENT: atraumatic, normocephalic Eye exam: PRESENT: conjunctiva pink, EOMI, PERRLA. ABSENT: scleral icterus Ear exam: PRESENT: normal external ear exam Mouth exam: PRESENT: moist, tongue midline Neck exam: ABSENT: carotid bruit, JVD, lymphadenopathy, thyromegaly Respiratory exam: PRESENT: clear to auscultation rudy. ABSENT: rales, rhonchi, wheezes Cardiovascular exam: PRESENT: RRR. ABSENT: diastolic murmur, rubs, systolic murmur Pulses: PRESENT: normal dorsalis pedis pul Vascular exam: PRESENT: normal capillary refill GI/Abdominal exam: PRESENT: normal bowel sounds, soft. ABSENT: distended, guarding, mass, organolmegaly, rebound, tenderness Rectal exam: PRESENT: deferred Extremities exam: PRESENT: full ROM. ABSENT: calf tenderness, clubbing, pedal edema Neurological exam: PRESENT: alert, awake, oriented to person, oriented to place , oriented to time, oriented to situation, CN II-XII grossly intact. ABSENT: motor sensory deficit Psychiatric exam: PRESENT: appropriate affect, normal mood. ABSENT: homicidal ideation, suicidal ideation Skin exam: PRESENT: dry, intact, warm. ABSENT: cyanosis, rash Results Laboratory Results: 05/05/16 06:19 05/05/16 06:19 05/04/16 05/05/16 05/05/16 18:35 06:19 06:19 WBC 3.2 L RBC 2.48 L Hgb 6.9 L Hct 20.8 L MCV 84 MCH 27.9 MCHC 33.2 RDW 14.0 Plt Count 118 L Sodium 141.7 Potassium 3.9 Chloride 111 H Carbon Dioxide 21 L Anion Gap 10 BUN 14 Creatinine 0.82 Est GFR ( Amer) > 60 Est GFR (Non-Af Amer) > 60 Glucose 96 Calcium 7.7 L Magnesium 1.5 L Urine Color YELLOW Urine Appearance SLIGHTLY-CLOUDY Urine pH 6.0 Ur Specific [place] 1.031 Urine Protein 100 H Urine Glucose (UA) NEGATIVE Urine Ketones 20 H Urine Blood NEGATIVE Urine Nitrite NEGATIVE Ur Leukocyte Esterase TRACE H Urine WBC (Auto) 8 Urine RBC (Auto) 1 Blood Type Antibody Screen 05/05/16 10:53 WBC RBC Hgb Hct MCV MCH MCHC RDW Plt Count Sodium Potassium Chloride Carbon Dioxide Anion Gap BUN Creatinine Est GFR ( Amer) Est GFR (Non-Af Amer) Glucose Calcium Magnesium Urine Color Urine Appearance Urine pH Ur Specific [place] Urine Protein Urine Glucose (UA) Urine Ketones Urine Blood Urine Nitrite Ur Leukocyte Esterase Urine WBC (Auto) Urine RBC (Auto) Blood Type B POSITIVE Antibody Screen NEGATIVE Impressions: Abdomen Ultrasound 05/04/16 00:00 IMPRESSION: There are small echogenic foci within the gallbladder lumen is noted above without shadowing being identified. These could represent tiny gallstones or biliary sludge. No thickening of the gallbladder wall is seen. A small amount of pericholecystic fluid is identified. The possibility of cholecystitis cannot be excluded. Clinical correlation is recommended. Other findings as noted above Abdomen/Pelvis CT 05/04/16 12:11 IMPRESSION: Possible noncalcified gallstones. Trace pericholecystic fluid. Consider ultrasound greater detail. Patchy right basilar infiltrate/atelectatic change. Likely small hiatus hernia. Assessment & Plan - Diagnosis (1) HIV (human immunodeficiency virus infection) Is this a current diagnosis for this admission?: YesPlan: Currently awaiting profile. Have a high suspicion for AIDS (2) Nausea & vomiting Qualifiers: Vomiting type: unspecified Vomiting Intractability: non-intractable Qualified Code(s): R11.2 - Nausea with vomiting, unspecified Is this a current diagnosis for this admission?: YesPlan: Will admit for hydration as well as Zofran. The patient appears to possibly have low-grade cholecystitis. Will expand antibiotic coverage. Will reevaluate in the a.m. Have a high suspicion of AIDS given the patient's overall clinical picture and noncompliance. Symptoms persist will consult surgery. (3) Dehydration Is this a current diagnosis for this admission?: YesPlan: Will continue to hydrate Selected Entries 05/04/16 05/04/16 09:17 14:26 Temperature 99.5 F Blood Pressure 87/49 L 95/48 L 04/25/16 05/04/16 05/04/16 11:43 10:00 10:00 WBC 3.9 L Hgb 8.3 L Hct 25.4 L BUN 23 H Urine Protein >=500 H Urine Ketones TRACE H (4) Pancytopenia Is this a current diagnosis for this admission?: YesPlan: The patient's hemoglobin has continued to trend down. Will obtain guaiac. Will type and cross and transfuse. (5) Anemia of chronic disease Is this a current diagnosis for this admission?: Yes (6) Noncompliance Is this a current diagnosis for this admission?: Yes - Time Time Spent with patient: 25-34 minutes Medications reviewed and adjusted accordingly: Yes Anticipated discharge: Home Within: within 24 hours, within 48 hours Disposition: The patient is a full code. Pending patient's symptomatology and diagnostic findings will reevaluate in the a.m.
[2016-05-05] MEDS: MAGNESIUM OXIDE 400 MG TABLET PO SCH (18:22)
[2016-05-06] MEDS: METRONIDAZOLE 500 MG/NS RTU 250 MG in CONTAINER,EMPTY 1 EACH IV SCH ×4 (03:07→21:43)
[2016-05-06] MEDS: LEVOFLOXACIN 750 MG/D5W RTU 750 MG/150 ML RTUPB IV SCH ×2 (03:07→21:43)
[2016-05-06 05:13] LABS: HEMATOCRIT 33.8 % (36.0-47.0); HGB HCT DIFFERENCE 0.7; MEAN CORPUSCULAR HEMOGLOBIN 28.8 pg (27.0-33.4); MEAN CORPUSCULAR VOLUME 85 fl (80-97); RED BLOOD COUNT 3.99 10^6/uL (3.72-5.28); RED CELL DISTRIBUTION WIDTH 13.6 % (11.5-14.0); WHITE BLOOD COUNT 4.2 10^3/uL (4.0-10.5)
[2016-05-06 05:15] LABS: ANION GAP 8 (5-19); BLOOD UREA NITROGEN 10 mg/dL (7-20); CALCIUM 8.3 mg/dL (8.4-10.2); CARBON DIOXIDE 20 mmol/L (22-30); CHLORIDE 115 mmol/L (98-107); CREATININE RESULT 0.77 mg/dL (0.52-1.25); GLUCOSE 78 mg/dL (75-110); MAGNESIUM 1.5 mg/dL (1.6-2.3); POTASSIUM 3.8 mmol/L (3.6-5.0); SODIUM 143.1 mmol/L (137-145)
[2016-05-06 05:27] LABS: HEMOGLOBIN 11.5 g/dL (12.0-15.5)
[2016-05-06 10:38] LABS: ABSOLUTE CD 4 HELPER 5 /uL (359-1519); CD BASOPHILS 0 % (.); CD EOSINOPHILS 0 % (.); CD MONOCYTES 4 % (.); HEMATOCRIT . 20.8 % (34.0-46.6); HEMOGLOBIN 6.6 g/dL (11.1-15.9); LYMPHS(ABSOLUTE) 0.2 x10E3/uL (0.7-3.1); MCH 27.5 pg (26.6-33.0); MCHC 31.7 g/dL (31.5-35.7); MCV 87 fL (79-97); METAMYELOCYTES 1 % (0 - 0); NEUTROPHILS(ABSOLUTE) 2.5 x10E3/uL (1.4-7.0); PLATELETS 139 x10E3/uL (150-379); RDW 14.4 % (12.3-15.4); WBC 2.8 x10E3/uL (3.4-10.8)
[2016-05-06] MEDS: MAGNESIUM OXIDE 400 MG TABLET PO SCH ×3 (11:20→18:40)
--- NOTE | 2016-05-06 11:25 | Physician Advisory Note ---
Physician Advisor ProgressNote .: Pursuant to the plan for [facility], I have reviewed the medical record for this patient. Physician Advisor Statement: Possible documentation opportunities if attending agrees: 1. "anemia of chronic dz due to HIV" (have to spell out causation) - ?also "suspect chronic nutritional ___ defic anemia"? 2. "underweight with protein-calorie malnutrition [state mild, mod, or severe] with BMI 17.7, 30# wt loss over last 30 days, eating only 25% of meals with frequent N/V, underlying HIV/possible AIDS, ____[?appetite loss, ]" [if possible, give specifics on intake, wt loss, loss of SQ fat & muscle mass, diminished hand borough coordinator strength, & clinical importance such as (A) nutritional assessment ordered, (B) modified diet or supplements ordered, (C) additional labs ordered, (D) prolonged wound healing time, (E) delayed infxn clearance] Thanks for your help with documentation accuracy/specificity improvement! Ashely Fry MD COUNT INCLUDES THE [facility] Physician Advisor, Fellow of [facility] Medicine
[2016-05-06 14:13] LABS: CD NEUTROPHILS 88 % (.); HEMATOLOGY COMMENTS Note: (.)
--- NOTE | 2016-05-06 14:13 | PDOC PROGRESS REPORT ---
Subjective Progress Note for:: 05/06/16 Subjective:: The patient was seen earlier today on rounds. Nausea is much improved and the patient was able to eat her entire breakfast tray. The patient denies any vomiting, diarrhea, shortness of breath, dizziness, chest pain, heart palpitations, fevers, or chills. The patient has remained afebrile. Blood pressures have been overall stable. On the low side but the patient's map is okay. When prompted the patient voices no other concerns at this time. Review of systems: The rest of the review of systems is negative. Physical Exam Vital Signs: Temp Pulse Resp BP Pulse Ox 98.1 F 63 14 90/48 L 99 05/06/16 12:57 05/06/16 12:57 05/06/16 12:57 05/06/16 12:57 05/06/16 12:57 Intake & Output 05/04/16 05/05/16 05/06/16 23:59 23:59 23:59 Intake Total 9 1590 350 Output Total 2100 Balance 9 -510 350 Weight 48.2 kg General appearance: PRESENT: no acute distress, cooperative, thin Exam: Frail cachectic Head exam: PRESENT: atraumatic, normocephalic Eye exam: PRESENT: conjunctiva pink, EOMI, PERRLA. ABSENT: scleral icterus Ear exam: PRESENT: normal external ear exam Mouth exam: PRESENT: moist, tongue midline Neck exam: ABSENT: carotid bruit, JVD, lymphadenopathy, thyromegaly Respiratory exam: PRESENT: clear to auscultation rudy. ABSENT: rales, rhonchi, wheezes Cardiovascular exam: PRESENT: RRR. ABSENT: diastolic murmur, rubs, systolic murmur Pulses: PRESENT: normal dorsalis pedis pul Vascular exam: PRESENT: normal capillary refill GI/Abdominal exam: PRESENT: normal bowel sounds, soft. ABSENT: distended, guarding, mass, organolmegaly, rebound, tenderness Rectal exam: PRESENT: deferred Extremities exam: PRESENT: full ROM. ABSENT: calf tenderness, clubbing, pedal edema Neurological exam: PRESENT: alert, awake, oriented to person, oriented to place , oriented to time, oriented to situation, CN II-XII grossly intact. ABSENT: motor sensory deficit Psychiatric exam: PRESENT: appropriate affect, normal mood. ABSENT: homicidal ideation, suicidal ideation Skin exam: PRESENT: dry, intact, warm. ABSENT: cyanosis, rash Results Laboratory Results: 05/06/16 04:36 05/06/16 04:36 05/05/16 05/06/16 05/06/16 10:53 04:36 04:36 WBC 4.2 RBC 3.99 Hgb 11.5 L D Hct 33.8 L MCV 85 MCH 28.8 MCHC 34.0 RDW 13.6 Plt Count 112 L Sodium 143.1 Potassium 3.8 Chloride 115 H Carbon Dioxide 20 L Anion Gap 8 BUN 10 Creatinine 0.77 Est GFR ( Amer) > 60 Est GFR (Non-Af Amer) > 60 Glucose 78 Calcium 8.3 L Magnesium 1.5 L Blood Type B POSITIVE Antibody Screen NEGATIVE Impressions: Abdomen Ultrasound 05/04/16 00:00 IMPRESSION: There are small echogenic foci within the gallbladder lumen is noted above without shadowing being identified. These could represent tiny gallstones or biliary sludge. No thickening of the gallbladder wall is seen. A small amount of pericholecystic fluid is identified. The possibility of cholecystitis cannot be excluded. Clinical correlation is recommended. Other findings as noted above Abdomen/Pelvis CT 05/04/16 12:11 IMPRESSION: Possible noncalcified gallstones. Trace pericholecystic fluid. Consider ultrasound greater detail. Patchy right basilar infiltrate/atelectatic change. Likely small hiatus hernia. Assessment & Plan - Diagnosis (1) HIV (human immunodeficiency virus infection) Is this a current diagnosis for this admission?: YesPlan: Currently awaiting profile. Have a high suspicion for AIDS. Once labs have returned discussed the case with infectious disease and develop a treatment plan accordingly. (2) Nausea & vomiting Qualifiers: Vomiting type: unspecified Vomiting Intractability: non-intractable Qualified Code(s): R11.2 - Nausea with vomiting, unspecified Is this a current diagnosis for this admission?: YesPlan: Will admit for hydration as well as Zofran. The patient appears to possibly have low-grade cholecystitis. Patient had complete resolution of symptoms with the expansion of antibiotic coverage. Will reevaluate in the a.m. Have a high suspicion of AIDS given the patient's overall clinical picture and noncompliance. Symptoms persist will consult surgery. (3) Dehydration Is this a current diagnosis for this admission?: YesPlan: Will continue to hydrate Selected Entries 05/04/16 05/04/16 09:17 14:26 Temperature 99.5 F Blood Pressure 87/49 L 95/48 L 04/25/16 05/04/16 05/04/16 11:43 10:00 10:00 WBC 3.9 L Hgb 8.3 L Hct 25.4 L BUN 23 H Urine Protein >=500 H Urine Ketones TRACE H (4) Pancytopenia Is this a current diagnosis for this admission?: YesPlan: The patient's hemoglobin and proved after transfusion. Will obtain guaiac. (5) Anemia of chronic disease Is this a current diagnosis for this admission?: YesPlan: Most likely secondary to HIV (6) Noncompliance Is this a current diagnosis for this admission?: Yes - Time Time Spent with patient: 25-34 minutes Medications reviewed and adjusted accordingly: Yes Anticipated discharge: Home Within: within 24 hours, within 48 hours
[2016-05-06] MEDS ORDERED: BENZONATATE 100 MG CAPSULE PO PRN (17:03)
[2016-05-06] MEDS: GUAIFENESIN 600 MG TABLET.SA PO SCH (21:43)
[2016-05-06] MEDS: FLUTICASONE NASAL SPRAY 50 MCG/SPRY 120 SPRAY/16 GM NASL SCH (21:44)
[2016-05-07] MEDS: POTASSI CL 20 MEQ/D5-1/2NS 1L 1,000 ML IV PRN (04:34)
[2016-05-07] MEDS: GUAIFENESIN 600 MG TABLET.SA PO SCH (09:14)
[2016-05-07] MEDS: MAGNESIUM OXIDE 400 MG TABLET PO SCH ×3 (09:14→17:01)
[2016-05-07] MEDS: FLUTICASONE NASAL SPRAY 50 MCG/SPRY 120 SPRAY/16 GM NASL SCH (09:14)
[2016-05-07] MEDS: METRONIDAZOLE 500 MG/NS RTU 250 MG in CONTAINER,EMPTY 1 EACH IV SCH ×2 (09:20→13:28)
[2016-05-07] MEDS ORDERED: ACETAMINOPHEN 325 MG TABLET PO PRN (09:24)
[2016-05-07 10:13] LABS: HIV-1 RNA LOG10.. 5.852 (.); HIV-1 RNA PCR QUANT 711000 copies/mL (.)
[2016-05-07 15:24] VITALS: BP 96/61
--- NOTE | 2016-05-07 17:44 | PDOC DISCHARGE SUMMARY ---
General - Admit/Disc Date/PCP Admission Date/Primary Care Provider: 05/04/16 13:43 GLADIS STAUFFER MD Infectious disease provider at [facility] Discharge Date: 05/07/16 - Discharge Diagnosis (1) HIV (human immunodeficiency virus infection) Is this a current diagnosis for this admission?: Yes (2) Nausea & vomiting Is this a current diagnosis for this admission?: Yes (3) Dehydration Is this a current diagnosis for this admission?: Yes (4) Pancytopenia Is this a current diagnosis for this admission?: Yes (5) Anemia of chronic disease Is this a current diagnosis for this admission?: Yes (6) Noncompliance Is this a current diagnosis for this admission?: Yes - Additional Information Resuscitation Status: Full Code Discharge Diet: Regular Discharge Activity: Activity As Tolerated Home Medications: No Home Medications 05/04/16 History of Present Illness Patient complains of: Vomiting and nausea 1 month with 30 pound weight loss History of Present Illness: JOSE LUIS GU is a 35 year old female with a past medical history of HIV who has not been taking antiretrovirals presents with complaints of nausea vomiting for the past one month consistently. Patient denies any fevers denies any diarrhea. Patient notes a 30 pound weight loss in the past month. The patient received 2 liters of fluid while in the emergency department as well as anti-medics. The patient is noted to be pancytopenic, dehydrated, with low- grade fever. The patient has been referred to the hospitalist remission and management. Hospital Course Hospital Course: The patient was admitted to continuous telemetry unit. The patient was hydrated. The patient was also typed and crossed and transfused given her anemia. The patient was noted to be pancytopenic. The patient was treated for UTI this did improve.'s custody with infectious disease in [place] which stated t the patient had never been a patient at infectious disease at that hospital. The patient had reportedly had 5-6 no shows and had not been seen nor receive treatment. I consulted infectious disease at [facility] to discuss the case prior to the patient's follow-up. Given the findings of a CD4 count of 5 it was not advised that the patient be discharged on any medications at time and the patient is to follow-up. The patient has no overt evidence of pneumonia and therefore prophylaxis was not warranted. 05/04/16 16:05 RBC 2.40 L Hgb 6.6 L Hct 20.8 L % CD4 Cells 2.7 L Absolute CD4 Count 5 L Physical Exam Vital Signs: Temp Pulse Resp BP Pulse Ox 98.3 F 94 20 96/61 L 100 05/07/16 15:14 05/07/16 15:14 05/07/16 15:14 05/07/16 15:14 05/07/16 15:14 Intake & Output 05/05/16 05/06/16 05/07/16 23:59 23:59 23:59 Intake Total 1416 836 1385 Output Total 2100 2200 Balance -510 350 -100 Weight 48.2 kg 45.5 kg General appearance: PRESENT: no acute distress, cooperative, thin Exam: Frail cachectic Head exam: PRESENT: atraumatic, normocephalic Eye exam: PRESENT: conjunctiva pink, EOMI, PERRLA. ABSENT: scleral icterus Ear exam: PRESENT: normal external ear exam Mouth exam: PRESENT: moist, tongue midline Neck exam: ABSENT: carotid bruit, JVD, lymphadenopathy, thyromegaly Respiratory exam: PRESENT: clear to auscultation urdy. ABSENT: rales, rhonchi, wheezes Cardiovascular exam: PRESENT: RRR. ABSENT: diastolic murmur, rubs, systolic murmur Pulses: PRESENT: normal dorsalis pedis pul Vascular exam: PRESENT: normal capillary refill GI/Abdominal exam: PRESENT: normal bowel sounds, soft. ABSENT: distended, guarding, mass, organolmegaly, rebound, tenderness Rectal exam: PRESENT: deferred Extremities exam: PRESENT: full ROM. ABSENT: calf tenderness, clubbing, pedal edema Neurological exam: PRESENT: alert, awake, oriented to person, oriented to place , oriented to time, oriented to situation, CN II-XII grossly intact. ABSENT: motor sensory deficit Psychiatric exam: PRESENT: appropriate affect, normal mood. ABSENT: homicidal ideation, suicidal ideation Skin exam: PRESENT: dry, intact, warm. ABSENT: cyanosis, rash Results Laboratory Results: Labs- Last Values WBC 4.2 10^3/uL (4.0-10.5) 05/06/16 04:36 RBC 3.99 10^6/uL (3.72-5.28) 05/06/16 04:36 Hgb 11.5 g/dL (12.0-15.5) L D 05/06/16 04:36 Hct 33.8 % (36.0-47.0) L 05/06/16 04:36 MCV 85 fl (80-97) 05/06/16 04:36 MCH 28.8 pg (27.0-33.4) 05/06/16 04:36 MCHC 34.0 g/dL (32.0-36.0) 05/06/16 04:36 RDW 13.6 % (11.5-14.0) 05/06/16 04:36 Plt Count 112 10^3/uL (150-450) L 05/06/16 04:36 Total Counted 100 05/04/16 10:00 Seg Neutrophils % Not Reportable 05/04/16 10:00 Seg Neuts % (Manual) 80 % (42-78) H 05/04/16 10:00 Band Neutrophils % 7 % (3-5) H 05/04/16 10:00 Lymphocytes % Not Reportable 05/04/16 10:00 Lymphocytes % (Manual) 1 % (13-45) L 05/04/16 10:00 Atypical Lymphs % 1 % (0) 05/04/16 10:00 Monocytes % Not Reportable 05/04/16 10:00 Monocytes % (Manual) 10 % (3-13) 05/04/16 10:00 Eosinophils % Not Reportable 05/04/16 10:00 Eosinophils % (Manual) 0 % (0-6) 05/04/16 10:00 Basophils % Not Reportable 05/04/16 10:00 Basophils % (Manual) 0 % (0-2) 05/04/16 10:00 Metamyelocytes % 1 % (0) H 05/04/16 10:00 Megakaryocytes % TNP 05/04/16 16:05 Other Cells % TNP 05/04/16 16:05 Immature Granulocytes TNP 05/04/16 16:05 Immature Gran # TNP 05/04/16 16:05 Absolute Neutrophils Not Reportable 05/04/16 10:00 Abs Neuts (Manual) 3.4 10^3/uL (1.7-8.2) 05/04/16 10:00 Band Neutrophils TNP 05/04/16 16:05 Absolute Lymphocytes Not Reportable 05/04/16 10:00 Abs Lymphs (Manual) 0.1 10^3/uL (0.5-4.7) L 05/04/16 10:00 Absolute Monocytes Not Reportable 05/04/16 10:00 Abs Monocytes (Manual) 0.4 10^3/uL (0.1-1.4) 05/04/16 10:00 Absolute Eosinophils Not Reportable 05/04/16 10:00 Absolute Eos (Manual) 0.0 10^3/uL (0.0-0.6) 05/04/16 10:00 Absolute Basophils Not Reportable 05/04/16 10:00 Abs Basophils (Manual) 0.0 10^3/uL (0.0-0.2) 05/04/16 10:00 Metamyelocytes 1 % (0 - 0) H 05/04/16 16:05 Myelocytes TNP 05/04/16 16:05 Promyelocytes TNP 05/04/16 16:05 Nucleated RBCs TNP 05/04/16 16:05 Blast-like Cells TNP 05/04/16 16:05 Immature Blood Cells Note (.) 05/04/16 16:05 Dohle Bodies PRESENT 05/04/16 10:00 Clumped Platelets PRESENT 05/04/16 10:00 Large Platelets PRESENT 05/04/16 10:00 Platelet Comment Not Reportable 05/04/16 10:00 Polychromasia SLIGHT 05/04/16 10:00 Hypochromasia SLIGHT 05/04/16 10:00 Poikilocytosis 2+ 05/04/16 10:00 Ovalocytes 2+ 05/04/16 10:00 Sodium 143.1 mmol/L (137-145) 05/06/16 04:36 Potassium 3.8 mmol/L (3.6-5.0) 05/06/16 04:36 Chloride 115 mmol/L (98-107) H 05/06/16 04:36 Carbon Dioxide 20 mmol/L (22-30) L 05/06/16 04:36 Anion Gap 8 (5-19) 05/06/16 04:36 BUN 10 mg/dL (7-20) 05/06/16 04:36 Creatinine 0.77 mg/dL (0.52-1.25) 05/06/16 04:36 Est GFR ( Amer) > 60 (>60) 05/06/16 04:36 Est GFR (Non-Af Amer) > 60 (>60) 05/06/16 04:36 Glucose 78 mg/dL (75-110) 05/06/16 04:36 Calcium 8.3 mg/dL (8.4-10.2) L 05/06/16 04:36 Magnesium 1.5 mg/dL (1.6-2.3) L 05/06/16 04:36 Total Bilirubin 0.6 mg/dL (0.2-1.3) 05/04/16 10:00 Direct Bilirubin 0.4 mg/dL (0.0-0.4) 05/04/16 10:00 Indirect Bilirubin Not Reportable 05/04/16 10:00 Neonat Total Bilirubin Not Reportable 05/04/16 10:00 AST 47 U/L (14-36) H 05/04/16 10:00 ALT 34 U/L (9-52) 05/04/16 10:00 Alkaline Phosphatase 59 U/L (38-126) 05/04/16 10:00 Total Protein 6.7 g/dL (6.3-8.2) 05/04/16 10:00 Albumin 3.0 g/dL (3.5-5.0) L 05/04/16 10:00 Lipase 171.5 U/L (23-300) 05/04/16 10:00 Urine Color YELLOW 05/04/16 18:35 Urine Appearance SLIGHTLY-CLOUDY 05/04/16 18:35 Urine pH 6.0 (5.0-9.0) 05/04/16 18:35 Ur Specific [place] 1.031 05/04/16 18:35 Urine Protein 100 mg/dL (NEGATIVE) H 05/04/16 18:35 Urine Glucose (UA) NEGATIVE mg/dL (NEGATIVE) 05/04/16 18:35 Urine Ketones 20 mg/dL (NEGATIVE) H 05/04/16 18:35 Urine Blood NEGATIVE (NEGATIVE) 05/04/16 18:35 Urine Nitrite NEGATIVE (NEGATIVE) 05/04/16 18:35 Urine Bilirubin NEGATIVE (NEGATIVE) 05/04/16 18:35 Urine Urobilinogen NEGATIVE mg/dL (<2.0) 05/04/16 18:35 Ur Leukocyte Esterase TRACE (NEGATIVE) H 05/04/16 18:35 Urine WBC (Auto) 8 /HPF 05/04/16 18:35 Urine RBC (Auto) 1 /HPF 05/04/16 18:35 Squamous Epi Cells Auto 1 /HPF 05/04/16 18:35 Urine Ascorbic Acid NEGATIVE (NEGATIVE) 05/04/16 18:35 Stool Occult Blood NEGATIVE (NEGATIVE) 05/07/16 13:37 Urine Opiates Screen NEGATIVE 05/04/16 18:35 Urine Methadone Screen NEGATIVE 05/04/16 18:35 Ur Barbiturates Screen NEGATIVE 05/04/16 18:35 Ur Phencyclidine Scrn NEGATIVE 05/04/16 18:35 Ur Amphetamines Screen NEGATIVE 05/04/16 18:35 U Benzodiazepines Scrn NEGATIVE 05/04/16 18:35 Urine Cocaine Screen NEGATIVE 05/04/16 18:35 U Marijuana (THC) Screen NEGATIVE 05/04/16 18:35 RBC 2.40 x10E6/uL (3.77-5.28) L 05/04/16 16:05 Hgb 6.6 g/dL (11.1-15.9) L 05/04/16 16:05 Hct 20.8 % (34.0-46.6) L 05/04/16 16:05 MCV 87 fL (79-97) 05/04/16 16:05 MCH 27.5 pg (26.6-33.0) 05/04/16 16:05 MCHC 31.7 g/dL (31.5-35.7) 05/04/16 16:05 RDW 14.4 % (12.3-15.4) 05/04/16 16:05 Platelet Count 139 x10E3/uL (150-379) L 05/04/16 16:05 Total WBC 2.8 x10E3/uL (3.4-10.8) L 05/04/16 16:05 Neutrophils 88 % (.) 05/04/16 16:05 Lymphocytes 7 % (.) 05/04/16 16:05 Monocytes 4 % (.) 05/04/16 16:05 Eosinophils 0 % (.) 05/04/16 16:05 Basophils 0 % (.) 05/04/16 16:05 Absolute Neutrophils 2.5 x10E3/uL (1.4-7.0) 05/04/16 16:05 Absolute Lymphocytes 0.2 x10E3/uL (0.7-3.1) L 05/04/16 16:05 Absolute Monocytes 0.1 x10E3/uL (0.1-0.9) 05/04/16 16:05 Absolute Eosinophils 0.0 x10E3/uL (0.0-0.4) 05/04/16 16:05 Absolute Basophils 0.0 x10E3/uL (0.0-0.2) 05/04/16 16:05 Hematology Comment Note: (.) 05/04/16 16:05 % CD4 Cells 2.7 % (30.8-58.5) L 05/04/16 16:05 Absolute CD4 Count 5 /uL (359-1519) L 05/04/16 16:05 T-Lymph CD4/CD8 Ratio 0.07 (0.92-3.72) L 05/04/16 16:05 % CD8 Cells 37.5 % (12.0-35.5) H 05/04/16 16:05 Absolute CD8 Count 75 /uL (109-897) L 05/04/16 16:05 HIV-1 Antibody Positive (Negative) H 05/04/16 10:00 HIV-1 RNA Qnt (RT-PCR) 792395 copies/mL (.) 05/04/16 16:05 HIV-1 RNA (PCR) log10 5.852 (.) 05/04/16 16:05 HIV-2 Antibody Negative (Negative) 05/04/16 10:00 HIV 1&2 Antibody Note Comment (.) 05/04/16 10:00 Blood Type B POSITIVE 05/05/16 10:53 Antibody Screen NEGATIVE 05/05/16 10:53 Crossmatch See Detail 05/05/16 10:53 05/05/16 01:25 Urine Culture - Final Clean Catch Midstream NO GROWTH 2 DAYS 05/04/16 17:35 Blood Culture - Preliminary Blood NO GROWTH AFTER 48 HOURS 05/04/16 16:05 Blood Culture - Preliminary Blood NO GROWTH AFTER 72 HOURS Impressions: Abdomen Ultrasound 05/04/16 00:00 IMPRESSION: There are small echogenic foci within the gallbladder lumen is noted above without shadowing being identified. These could represent tiny gallstones or biliary sludge. No thickening of the gallbladder wall is seen. A small amount of pericholecystic fluid is identified. The possibility of cholecystitis cannot be excluded. Clinical correlation is recommended. Other findings as noted above Abdomen/Pelvis CT 05/04/16 12:11 IMPRESSION: Possible noncalcified gallstones. Trace pericholecystic fluid. Consider ultrasound greater detail. Patchy right basilar infiltrate/atelectatic change. Likely small hiatus hernia. Qualifiers PATEINT BEING DISCHARGED WITH ANY OF THE FOLLOWING DIAGNOSIS?: No Plan Time Spent: Greater than 30 Minutes
[2016-05-12 11:02] LABS: HIV-2 IMMUNOBLOT Negative (.)
== END 2016-05-07 17:48 | disposition home or self-care (01) | DRG 977 ==
LOC: ER 09:11 → UNDOADMIN 12:31 → EH 12:31 → 4S 13:29 → EH 13:29 → 4S 13:43
PROC: 30233N1 Transfusion of Nonautologous Red Blood Cells into Peripheral Vein, Percutaneous Approach (ICD-10-PCS; principal; 2016-05-05)
DX: B20 Human immunodeficiency virus [HIV] disease (principal); D61.818 Other pancytopenia; Z68.1 Body mass index [BMI] 19.9 or less, adult; N39.0 Urinary tract infection, site not specified; G43.A1 Cyclical vomiting, in migraine, intractable; E86.0 Dehydration; D63.8 Anemia in other chronic diseases classified elsewhere; F32.9 Major depressive disorder, single episode, unspecified; K44.9 Diaphragmatic hernia without obstruction or gangrene; R63.4 Abnormal weight loss; Z91.19 Patient's noncompliance with other medical treatment and regimen; Z88.0 Allergy status to penicillin; Z88.8 Allergy status to other drugs, medicaments and biological substances; Z91.040 Latex allergy status; Z91.14 Patient's other noncompliance with medication regimen; Z82.49 Family history of ischemic heart disease and other diseases of the circulatory system; Z80.9 Family history of malignant neoplasm, unspecified
CPT/HCPCS: 36415; 36430; 74177; 76705; 80048; 80053; 80307; 81001; 82272; 83690; 83735; 85025; 85027; 86360; 86689; 86701; 86702; 86850; 86900; 86901; 86920; 87040; 87086; 87536; 93005; 93010; 96374; 99285; J1200; J1956; J2405; J2930; J3480; J3490; J7030; P9016

== ENCOUNTER 2016-11-06 15:15 | Emergency (ER) | payer MEDICAID ==
--- NOTE | 2016-11-06 16:03 | ER Document Report ---
ED Medical Screen (RME) - General Chief Complaint: Abdominal Pain Stated Complaint: BACK PAIN Time Seen by Provider: 11/06/16 15:54 Mode of Arrival: Ambulatory Information source: Patient Notes: 36-year-old female history of HIV presents with complaints of abdominal pain distention patient unsure if she is or not I have greeted and performed a rapid initial assessment of this patient. A comprehensive ED assessment and evaluation of the patient, analysis of test results and completion of the medical decision making process will be conducted by additional ED providers. PHYSICAL EXAMINATION: GENERAL: Well-appearing, well-nourished and in no acute distress. HEAD: Atraumatic, normocephalic. EYES: Pupils equal round extraocular movements intact, conjunctiva are normal. ENT: Nares patent NECK: Normal range of motion Abd: abdominal distension noted LUNGS: No respiratory distress Musculoskeletal: Normal range of motion NEUROLOGICAL: Normal speech, normal gait. PSYCH: Normal mood, normal affect. SKIN: Warm, Dry, normal turgor, no rashes or lesions noted. TRAVEL OUTSIDE OF THE [place] IN LAST 30 DAYS: No - Related Data Allergies/Adverse Reactions: iodine [Iodine] Allergy (Verified 11/06/16 15:19) latex [Latex] Allergy (Verified 11/06/16 15:19) Penicillins Allergy (Verified 11/06/16 15:19) povidone-iodine [From Betadine] Allergy (Verified 11/06/16 15:19) Soap [From Betadine] Allergy (Verified 11/06/16 15:19) Past Medical History - Social History Chew tobacco use (# tins/day): No Frequency of alcohol use: None Drug Abuse: None Renal/ Medical History: Denies: Hx Peritoneal Dialysis Psychiatric Medical History: Reports: Hx Depression Infectious Medical History: Reports: Hx HIV - STATES DX WITH HIV IN 2007 - NOT CURRENTLY ON MEDS -- NOT SEEN BY INFECTIOUS DISEASE IN 1 - 2 YEARS - STATES JUST DID NOT GO BACK. Past Surgical History: Reports: Hx Tubal Ligation - Immunizations Hx Diphtheria, Pertussis, Tetanus Vaccination: No Physical Exam - Vital signs Vitals: Temp Pulse Resp BP Pulse Ox 98.6 F 105 H 18 103/64 98 11/06/16 15:19 11/06/16 15:19 11/06/16 15:19 11/06/16 15:19 11/06/16 15:19 Course - Vital Signs Vital signs: Temp Pulse Resp BP Pulse Ox 98.6 F 105 H 18 103/64 98 11/06/16 15:19 11/06/16 15:19 11/06/16 15:19 11/06/16 15:19 11/06/16 15:19
[2016-11-06 16:07] VITALS: BP 97/54
[2016-11-06 16:30] LABS: HEMATOCRIT 35.9 % (36.0-47.0); HEMOGLOBIN 12.1 g/dL (12.0-15.5); HGB HCT DIFFERENCE 0.4; MEAN CORPUSCULAR HEMOGLOBIN 30.5 pg (27.0-33.4); MEAN CORPUSCULAR HGB CONC 33.7 g/dL (32.0-36.0); MEAN CORPUSCULAR VOLUME 91 fl (80-97); RED BLOOD COUNT 3.96 10^6/uL (3.72-5.28); RED CELL DISTRIBUTION WIDTH 15.6 % (11.5-14.0); WHITE BLOOD COUNT 6.1 10^3/uL (4.0-10.5)
--- NOTE | 2016-11-06 16:36 | ER Document Report ---
ED GI/ - General Mode of Arrival: Ambulatory Information source: Patient TRAVEL OUTSIDE OF THE [place] IN LAST 30 DAYS: No - HPI Patient complains to provider of: Abdominal pain Onset: Last week Timing/Duration: Persistent Quality of pain: Cramping Exacerbated by: Denies Relieved by: Denies Similar symptoms previously: No Recently seen / treated by doctor: No <KLARISSA DRAPER - Last Filed: 11/06/16 16:43> <EDGARDO ARRIAGA - Last Filed: 11/06/16 19:29> - General Chief Complaint: Abdominal Pain Stated Complaint: BACK PAIN Time Seen by Provider: 11/06/16 15:54 Notes: Patient is a 36-year-old female with a history of HIV that presents to the emergency department today with complaints of an abdominal pain and low back pain for 1 week. Patient states her abdomen feels slightly distended. Patient states she believes she has been having normal bowel movements recently, she does not feel like she has been constipated. Patient states her periods are irregular however she had one last month. Patient states she has been compliant her HIV meds recently. (KLARISSA DRAPER) - Related Data Allergies/Adverse Reactions: iodine [Iodine] Allergy (Verified 11/06/16 15:19) latex [Latex] Allergy (Verified 11/06/16 15:19) Penicillins Allergy (Verified 11/06/16 15:19) povidone-iodine [From Betadine] Allergy (Verified 11/06/16 15:19) Soap [From Betadine] Allergy (Verified 11/06/16 15:19) Past Medical History - General Information source: Patient, [facility] Records - Social History Smoking Status: Current Every Day Smoker Cigarette use (# per day): Yes Chew tobacco use (# tins/day): No Frequency of alcohol use: Rare Drug Abuse: None Lives with: Family Family History: Reviewed & Not Pertinent, Hypertension, Malignancy Psychiatric Medical History: Reports: Hx Depression Infectious Medical History: Reports: Hx HIV - STATES DX IN 2007 - HISTORY OF NON -COMPLIANCE WITH MEDS, COMPLIANT NOW Past Surgical History: Reports: Hx Tubal Ligation - Immunizations Hx Diphtheria, Pertussis, Tetanus Vaccination: No <KLARISSA DRAPER - Last Filed: 11/06/16 16:43> Review of Systems - Review of Systems Constitutional: denies: Fever EENT: No symptoms reported Cardiovascular: No symptoms reported Respiratory: No symptoms reported Gastrointestinal: See HPI, Abdomen distended, Abdominal pain. denies: Nausea, Vomiting, Constipation Genitourinary: No symptoms reported Female Genitourinary: No symptoms reported Musculoskeletal: No symptoms reported Skin: No symptoms reported Hematologic/Lymphatic: No symptoms reported Neurological/Psychological: No symptoms reported -: Yes All other systems reviewed and negative <KLARISSA DRAPER - Last Filed: 11/06/16 16:43> Physical Exam - Vital signs Interpretation: Normal - General General appearance: Alert, Other - appears chronically ill consistent with history of HIV In distress: None - HEENT Head: Normocephalic, Atraumatic Eyes: Normal Pupils: PERRL - Respiratory Respiratory status: No respiratory distress Breath sounds: Normal Chest palpation: Normal - Cardiovascular Rhythm: Regular Heart sounds: Normal auscultation Murmur: No - Abdominal Distension: Distended - slightly tender over area of distension Bowel sounds: Normal Tenderness: Nontender Organomegaly: No organomegaly - Back Back: Normal, Nontender - Extremities General upper extremity: Normal inspection, Normal color. No: Edema General lower extremity: Normal inspection, Normal color. No: Edema - Neurological Neuro grossly intact: Yes Cognition: Normal Orientation: AAOx4 [place] Coma Scale Eye Opening: Spontaneous Carina Coma Scale Verbal: Oriented Carina Coma Scale Motor: Obeys Commands [place] Coma Scale Total: 15 Speech: Normal - Psychological Associated symptoms: Normal affect, Normal mood - Skin Skin Temperature: Warm Skin Moisture: Dry Skin Color: Normal <KLARISSA DRAPER - Last Filed: 11/06/16 16:43> - Vital signs Vitals: Temp Pulse Resp BP Pulse Ox 98.6 F 105 H 18 103/64 98 11/06/16 15:19 11/06/16 15:19 11/06/16 15:19 11/06/16 15:19 11/06/16 15:19 Course - Laboratory Result Diagrams: 11/06/16 16:12 11/06/16 16:12 <KLARISSA DRAPER - Last Filed: 11/06/16 16:43> - Laboratory Result Diagrams: 11/06/16 16:12 11/06/16 16:47 - Diagnostic Test Radiology reviewed: Image reviewed - Acute abdominal series shows considerable stool in the transverse and descending colon. <EDGARDO ARRIAGA - Last Filed: 11/06/16 19:29> - Vital Signs Vital signs: Temp Pulse Resp BP Pulse Ox 98.8 F 97 20 97/54 L 100 11/06/16 16:05 11/06/16 16:05 11/06/16 16:05 11/06/16 16:05 11/06/16 16:05 - Laboratory Laboratory results interpreted by me: 11/06/16 11/06/16 16:12 16:47 Hct 35.9 L RDW 15.6 H Band Neutrophils % 6 H Eosinophils % (Manual) 12 H Absolute Eos (Manual) 0.7 H Potassium 3.0 L* Est GFR (Non-Af Amer) 58 L AST 55 H Alkaline Phosphatase 138 H Discharge <KLARISSA DRAPER - Last Filed: 11/06/16 16:43> <EDGARDO ARRIAGA - Last Filed: 11/06/16 19:29> - Discharge Clinical Impression: Constipation Qualifiers: Constipation type: unspecified constipation type Qualified Code(s): K59.00 - Constipation, unspecified Abdominal pain Qualifiers: Abdominal location: lower abdomen, unspecified Qualified Code(s): R10.30 - Lower abdominal pain, unspecified Condition: Stable Disposition: HOME, SELF-CARE Additional Instructions: Constipation: Constipation is a common problem. It is especially likely as you get older. Constipation is a common cause of abdominal pain, but sometimes causes no symptoms at all. Causes of constipation include certain medications, dehydration, diets, inactivity, and low-fiber intake. Rarely, it can be a symptom of underlying disease. The physician has evaluated you for this. Avoid constipation by eating a diet high in fiber, fruits, and vegetables. Drink plenty of liquids. Get regular exercise. If possible, avoid constipating medicines like narcotic pain medication. Some vitamin tablets can cause constipation. Stool softeners may be needed for difficult cases. An excellent stool softener is Konsyl which is available at [employer], and [employer] drug store. Just add a teaspoon to a glass of pineapple or orange juice daily or twice a day if needed. Laxatives are useful for occasional constipation. You should use them only when necessary. Too-frequent use can make your bowels dependent on them. Some over the counter laxatives available without prescription are: Milk of Magnesia, 1-2 tablespoons twice a day Dulcolax, 5 mg pill or 10 mg suppository. Citrate of Magnesia, 4-5 ounces a day for a day or two For acute constipation, Fleet's Enemas and Dulcolax suppositories are helpful. Chronic, manager terminal use of laxatives or enemas is not a good idea. Your bowel may become dependant on them. You do not need to have a bowel movement every day. Many people do fine with a bowel movement every three or four days. You should call your doctor or return for re-evaluation if you pass blood in the stool, or if you develop fever or increasing abdominal pain. //////////////////////////////////////////////////////////////////////////////// //////////////////////////////////////////////////////////////////////////////// ////////////////// Take MiraLAX once every day until you are moving your bowels well. Drink plenty of fluids. Follow-up with your doctor this week if not improving. RETURN TO THE EMERGENCY ROOM IF ANY NEW OR WORSENING SYMPTOMS. Referrals: PURNIMA RAPP, DO [Primary Care Provider] - Follow up as needed Scribe Attestation: 11/06/16 19:28 I personally performed the services described in the documentation, reviewed and edited the documentation which was dictated to the scribe in my presence, and it accurately records my words and actions. (EDGARDO ARRIAGA) Scribe Documentation - Scribe Written by Scrmaris:: Angelina Yen, 11/06/2016 1902 acting as scribe for :: Adamaris <KLARISSA DRAPER - Last Filed: 11/06/16 16:43>
[2016-11-06 16:47] LABS: BAND NEUTROPHILS % (MANUAL) 6 % (3-5); BASOPHILS % (MANUAL) 1 % (0-2); EOSINOPHILS % (MANUAL) 12 % (0-6); LYMPHOCYTES % (MANUAL) 13 % (13-45); TOTAL CELLS COUNTED 100
[2016-11-06 16:48] LABS: ANISOCYTOSIS SLIGHT; HYPOCHROMASIA SLIGHT
[2016-11-06 17:38] LABS: ALANINE AMINOTRANSFERASE 30 U/L (9-52); ALBUMIN 3.9 g/dL (3.5-5.0); ALKALINE PHOSPHATASE 138 U/L (38-126); ANION GAP 13 (5-19); ASPARTATE AMINO TRANSFERASE 55 U/L (14-36); BILIRUBIN,DIRECT 0.4 mg/dL (0.0-0.4); BILIRUBIN,TOTAL 0.4 mg/dL (0.2-1.3); BLOOD UREA NITROGEN 14 mg/dL (7-20); CALCIUM 9.6 mg/dL (8.4-10.2); CARBON DIOXIDE 25 mmol/L (22-30); CHLORIDE 103 mmol/L (98-107); CREATININE RESULT 1.06 mg/dL (0.52-1.25); GLUCOSE 88 mg/dL (75-110); SODIUM 140.9 mmol/L (137-145); TOTAL PROTEIN 8.2 g/dL (6.3-8.2)
--- NOTE | 2016-11-06 18:57 | RADIOLOGY REPORT (SQ) ---
EXAM DESCRIPTION: ACUTE ABDOMEN SERIES COMPLETED DATE/TIME: 11/06/2016 6:48 pm REASON FOR STUDY: ABD PAIN AND DISTENTION COMPARISON: None. NUMBER OF VIEWS: Three views. TECHNIQUE: Frontal chest, supine abdomen and upright/decubitus abdomen radiographic images acquired. LIMITATIONS: None. FINDINGS: CHEST: Lungs clear of infiltrates. FREE AIR: None. No abnormal gas collections. BOWEL GAS PATTERN: Nonobstructive pattern. No dilated loops or air fluid levels. CALCIFICATIONS: No suspicious calcifications. HARDWARE: None in the abdomen. SOFT TISSUES: No gross mass or suggestion of organomegaly. BONES: No acute fracture. No worrisome bone lesions. OTHER: No other significant finding. IMPRESSION: NO RADIOGRAPHIC EVIDENCE FOR ACUTE ABDOMINAL DISEASE. TECHNICAL DOCUMENTATION: JOB ID: [id number] [employer]- All Rights Reserved
[2016-11-06] MEDS ORDERED: MAGNESIUM CITRATE 296 ML BOTTLE PO ONE (19:11)
== END 2016-11-06 19:38 | disposition home or self-care (01) ==
LOC: ER 15:15
DX: K59.00 Constipation, unspecified (principal); R10.30 Lower abdominal pain, unspecified; R10.9 Unspecified abdominal pain; M54.9 Dorsalgia, unspecified; B20 Human immunodeficiency virus [HIV] disease; F17.210 Nicotine dependence, cigarettes, uncomplicated
CPT/HCPCS: 99284; 36415; 84702; 85025; 80053; 74022; J3490

== ENCOUNTER 2017-01-29 10:09 | Emergency (ER) | payer MEDICAID ==
--- NOTE | 2017-01-29 10:35 | ER Document Report ---
ED General - General Chief Complaint: Fall Stated Complaint: FALL/RIGHT SIDE PAIN, HEAD PAIN Time Seen by Provider: 01/29/17 10:23 Mode of Arrival: Ambulatory Information source: Patient Notes: This is a 36-year-old female with a history of HIV (reports having a viral load in November that was "none detectable"), pulmonary embolism (on Eliquis) who states that on she felt faint and passed out. She states that she had nausea and vomiting at the time. She states that she fell on her right side and is been having right back and pelvic pain since. She denies any shortness of breath or chest pain. TRAVEL OUTSIDE OF THE [place] IN LAST 30 DAYS: No - HPI Onset: Last week Onset/Duration: Gradual Quality of pain: Dull Pain Level: 3 Associated symptoms: denies: Chest pain, Fever, Shortness of breath Exacerbated by: Movement Relieved by: Denies Similar symptoms previously: No Recently seen / treated by doctor: No - Related Data Allergies/Adverse Reactions: iodine [Iodine] Allergy (Verified 11/06/16 15:19) latex [Latex] Allergy (Verified 11/06/16 15:19) Penicillins Allergy (Verified 11/06/16 15:19) povidone-iodine [From Betadine] Allergy (Verified 11/06/16 15:19) Soap [From Betadine] Allergy (Verified 11/06/16 15:19) Home Medications: Current Home Medications Apixaban [Eliquis 2.5 mg Tablet] 2.5 mg PO BID 01/29/17 [History] Emtricitabine/Tenofov Alafenam [Descovy 200-25 mg Tablet] 1 each PO DAILY [History] Past Medical History - General Information source: Patient - Social History Smoking Status: Never Smoker Cigarette use (# per day): No Chew tobacco use (# tins/day): No Family History: Reviewed & Not Pertinent, Hypertension, Malignancy Renal/ Medical History: Denies: Hx Peritoneal Dialysis Psychiatric Medical History: Reports: Hx Depression Infectious Medical History: Reports: Hx HIV - STATES DX IN 2007 - HISTORY OF NON -COMPLIANCE WITH MEDS, COMPLIANT NOW Past Surgical History: Reports: Hx Tubal Ligation - Immunizations Hx Diphtheria, Pertussis, Tetanus Vaccination: No Review of Systems - Review of Systems Constitutional: denies: Chills, Fever EENT: No symptoms reported Cardiovascular: Dizziness, Lightheaded Respiratory: No symptoms reported Gastrointestinal: See HPI Genitourinary: No symptoms reported Female Genitourinary: No symptoms reported Musculoskeletal: No symptoms reported Skin: No symptoms reported Hematologic/Lymphatic: No symptoms reported Neurological/Psychological: No symptoms reported Physical Exam - Vital signs Vitals: Temp Pulse Resp BP Pulse Ox 98.5 F 125 H 16 95/55 L 98 01/29/17 10:16 01/29/17 10:16 01/29/17 10:16 01/29/17 10:16 01/29/17 10:16 Notes: Physical exam: GENERAL: Cachectic 36-year-old female, alert and oriented 3, no acute distress. Patient is afebrile, blood pressure 95/55, heart rate 125, respirations 16, O2 saturation 98% on room air. HEAD: Atraumatic, normocephalic. EYES: Pupils equal round and reactive to light, extraocular movements intact, sclera anicteric, conjunctiva are normal. ENT: TMs normal, nares patent, oropharynx clear without exudates. Moist mucous membranes. NECK: Normal range of motion, supple without obvious mass or JVD. LUNGS: Breath sounds clear to auscultation bilaterally and equal. No wheezes rales or rhonchi. HEART: Regular rate and rhythm without murmurs, rubs or gallops. ABDOMEN: Soft, normoactive bowel sounds. No tenderness to palpation. No guarding, no rebound. No masses appreciated. EXTREMITIES: Normal range of motion, no pitting or edema. No clubbing or cyanosis. NEUROLOGICAL: Cranial nerves II through XII grossly intact. Normal speech, moving all extremities. PSYCH: Normal mood, normal affect. SKIN: Warm, Dry, normal turgor, no rashes or lesions noted. Course - Re-evaluation Re-evalutation: 01/29/17 12:35 Note: Patient does have iodine listed as an allergy. She states she gets itching from that. She has had CT with IV contrast in the past and has been premedicated. I discussed this with the veterinary technician assistant and we will premedicate her before her CTA. 01/29/17 14:29 The CTA of the chest was performed without incident. The patient tolerated the procedure well. She does not have any evidence of pulmonary emboli on the CT. There is a suspicious soft tissue mass in the left upper lobe with adjacent density in the mediastinum superiorly. There are at least 2 other nodules 1 of which is spiculated. The findings are concerning for malignancy. I did discuss the case with Dr. Gaona (Oncology) is willing to see the patient in the office this week. I discussed this with the patient she is willing to call the office on Tuesday to be evaluated by by Dr. Gaona. I will also give the patient a copy of all the labs done today as well as the x-ray and CT reports. I have advised her to follow-up as well with her primary care provider at [facility]. 01/29/17 14:31 The patient is comfortable at this time and states she feels good. - Vital Signs Vital signs: Temp Pulse Resp BP Pulse Ox 98.5 F 125 H 13 96/63 L 100 01/29/17 10:16 01/29/17 10:16 01/29/17 14:32 01/29/17 14:32 01/29/17 14:31 - Laboratory Result Diagrams: 01/29/17 10:40 01/29/17 10:40 Laboratory results interpreted by me: 01/29/17 01/29/17 10:40 10:40 WBC 13.5 H RBC 3.65 L Hgb 10.4 L Hct 31.4 L Seg Neuts % (Manual) 91 H Lymphocytes % (Manual) 4 L Abs Neuts (Manual) 12.3 H Sodium 134.8 L Potassium 2.7 L* Chloride 97 L Creatinine 1.42 H Est GFR ( Amer) 50 L Est GFR (Non-Af Amer) 42 L Glucose 122 H Albumin 3.3 L - Diagnostic Test Radiology reviewed: Image reviewed, Reports reviewed - Pelvis x-ray shows no obvious lesions. Chest x-ray shows hyperaerated lungs consistent with COPD. Discharge - Discharge Clinical Impression: Contusion status post fall, Vasovagal episode, Soft tissue mass in the lung, Hypokalemia Condition: Stable Disposition: HOME, SELF-CARE Instructions: Hypokalemia ([facility]) Additional Instructions: As we discussed: I want you to call Dr. Gaona's office on Tuesday to be seen this week. Tell the customer service receptionist that the ER doctor had spoken to Dr. Gaona about your chest CT and that Dr. Gaona wanted you seen this week. The CT of the chest showed a soft tissue mass and there is concern that this could possibly be cancer. It is important that you follow-up with Dr Gaona so that appropriate workup of this lung lesion can be made. I would also like you to call your primary care doctor because she may prefer that you get seen in [place] for this. I want you to bring a copy of today's labs as well as CT report with you when you see your primary care provider. Return to the emergency room for any concerns if feeling worse, dizziness, fainting, chest or abdomen pain. Take the potassium supplementation for the next week. Prescriptions: Potassium Chloride 10 meq PO DAILY #7 capsule.er Referrals: REJI GAONA MD [ACTIVE STAFF] - Follow up as needed (This is the number for the oncologist I want you to call on Tuesday.)
[2017-01-29] MEDS ORDERED: MORPHINE SULFATE 10 MG/ML INJ IV PRN (10:36)
[2017-01-29] MEDS ORDERED: ONDANSETRON HCL INJ/PF 4 MG/2 ML SDV IV ONE (10:37)
[2017-01-29] MEDS: NORMAL SALINE 1000 ML 1,000 ML IV PRN ×3 (10:47→14:05)
--- NOTE | 2017-01-29 11:21 | RADIOLOGY REPORT (SQ) ---
EXAM DESCRIPTION: CHEST SINGLE VIEW COMPLETED DATE/TIME: 01/29/2017 11:12 am REASON FOR STUDY: chest pain COMPARISON: 04/25/2016. NUMBER OF VIEWS: One view. TECHNIQUE: Single frontal radiographic view of the chest acquired. LIMITATIONS: None. FINDINGS: LUNGS AND PLEURA: Slightly hyperinflated lungs may reflect underlying obstructive pulmonar y disease. Mild increased density overlies the left upper lobe, projecting over the anterior left ri b end. Probably artifact. Consider apical lordotic view to clear this area. Bilateral nipple shado ws are present. No other opacities. No abnormal gas collections. MEDIASTINUM AND HILAR STRUCTURES: No masses. Contour normal. HEART AND VASCULAR STRUCTURES: Heart normal in size. Normal vasculature. BONES: No acute findings. HARDWARE: None in the chest. OTHER: No other significant finding. IMPRESSION: 1. Suspect overlapping shadows in the left upper lobe. Recommend apical lordotic view t o further assess. 2. Hyperinflated lungs may represent underlying COPD. TECHNICAL DOCUMENTATION: JOB ID: [id number] [employer]- All Rights Reserved
[2017-01-29 11:23] LABS: ALANINE AMINOTRANSFERASE 30 U/L (9-52); ALBUMIN 3.3 g/dL (3.5-5.0); ALKALINE PHOSPHATASE 98 U/L (38-126); ANION GAP 14 (5-19); ASPARTATE AMINO TRANSFERASE 24 U/L (14-36); BILIRUBIN,DIRECT 0.3 mg/dL (0.0-0.4); BILIRUBIN,TOTAL 0.4 mg/dL (0.2-1.3); BLOOD UREA NITROGEN 13 mg/dL (7-20); CALCIUM 8.8 mg/dL (8.4-10.2); CARBON DIOXIDE 24 mmol/L (22-30); CHLORIDE 97 mmol/L (98-107); CREATINE KINASE 50 U/L (30-135); CREATININE RESULT 1.42 mg/dL (0.52-1.25); GLUCOSE 122 mg/dL (75-110); MAGNESIUM 2.1 mg/dL (1.6-2.3); SODIUM 134.8 mmol/L (137-145); TOTAL PROTEIN 7.5 g/dL (6.3-8.2)
[2017-01-29 11:24] LABS: POTASSIUM 2.7 mmol/L (3.6-5.0)
[2017-01-29] MEDS ORDERED: POTASSIUM CHLORIDE 10 MEQ TABLET.SA PO ONE ×2 (11:25→13:55)
--- NOTE | 2017-01-29 11:25 | RADIOLOGY REPORT (SQ) ---
EXAM DESCRIPTION: PELVIS AP COMPLETED DATE/TIME: 01/29/2017 11:12 am REASON FOR STUDY: right iliac wing pain COMPARISON: 2012. NUMBER OF VIEWS: Single AP view of the pelvis. LIMITATIONS: None. FINDINGS: No evidence of fracture or avulsion, including in the right iliac wing. Mild overlying macy wel gas. SI joints look symmetric. Bilateral symmetric hip joints with minimal degenerative spurrin g. No worrisome bone lesion. OTHER: No other significant finding. IMPRESSION: No acute or suspicious findings. Specifically, no lesions related to the right iliac wi ng. TECHNICAL DOCUMENTATION: JOB ID: [id number]
[2017-01-29 11:28] LABS: HEMATOCRIT 31.4 % (36.0-47.0); HEMOGLOBIN 10.4 g/dL (12.0-15.5); HGB HCT DIFFERENCE -0.2; MEAN CORPUSCULAR HEMOGLOBIN 28.5 pg (27.0-33.4); MEAN CORPUSCULAR HGB CONC 33.1 g/dL (32.0-36.0); MEAN CORPUSCULAR VOLUME 86 fl (80-97); RED BLOOD COUNT 3.65 10^6/uL (3.72-5.28); RED CELL DISTRIBUTION WIDTH 13.4 % (11.5-14.0); WHITE BLOOD COUNT 13.5 10^3/uL (4.0-10.5)
[2017-01-29 11:35] LABS: CREATINE KINASE MB < 0.22 ng/mL (<4.55); TROPONIN I < 0.012 ng/mL
[2017-01-29 11:39] LABS: BASOPHILS % (MANUAL) 0 % (0-2); EOSINOPHILS % (MANUAL) 0 % (0-6); LYMPHOCYTES % (MANUAL) 4 % (13-45); TOTAL CELLS COUNTED 100
[2017-01-29 11:41] LABS: OVALOCYTES SLIGHT; POIKILOCYTOSIS SLIGHT; TOXIC VACUOLATION PRESENT
[2017-01-29] MEDS ORDERED: DIPHENHYDRAMINE HCL 50 MG/ML VIAL IV ONE (12:34)
[2017-01-29] MEDS ORDERED: FAMOTIDINE INJ/PF 20 MG/2 ML SDV IV ONE (12:34)
[2017-01-29] MEDS ORDERED: METHYLPREDNISOLONE INJ 125 MG/2 ML SDV IV ONE (12:34)
--- NOTE | 2017-01-29 12:36 | ER Document Report ---
ED General - General Chief Complaint: Fall Stated Complaint: FALL/RIGHT SIDE PAIN, HEAD PAIN Time Seen by Provider: 01/29/17 10:23 Mode of Arrival: Ambulatory Information source: Patient, Relative TRAVEL OUTSIDE OF THE [place] IN LAST 30 DAYS: No - Related Data Allergies/Adverse Reactions: iodine [Iodine] Allergy (Verified 11/06/16 15:19) latex [Latex] Allergy (Verified 11/06/16 15:19) Penicillins Allergy (Verified 11/06/16 15:19) povidone-iodine [From Betadine] Allergy (Verified 11/06/16 15:19) Soap [From Betadine] Allergy (Verified 11/06/16 15:19) Home Medications: Current Home Medications Apixaban [Eliquis 2.5 mg Tablet] 2.5 mg PO BID 01/29/17 [History] Emtricitabine/Tenofov Alafenam [Descovy 200-25 mg Tablet] 1 each PO DAILY [History] Past Medical History - General Information source: Patient - Social History Smoking Status: Never Smoker Chew tobacco use (# tins/day): No Frequency of alcohol use: None Drug Abuse: None Family History: Reviewed & Not Pertinent, Hypertension, Malignancy Patient has suicidal ideation: No Patient has homicidal ideation: No Renal/ Medical History: Denies: Hx Peritoneal Dialysis Psychiatric Medical History: Reports: Hx Depression Infectious Medical History: Reports: Hx HIV - STATES DX IN 2007 - HISTORY OF NON -COMPLIANCE WITH MEDS, COMPLIANT NOW Past Surgical History: Reports: Hx Tubal Ligation - Immunizations Hx Diphtheria, Pertussis, Tetanus Vaccination: No Physical Exam - Vital signs Vitals: Temp Pulse Resp BP Pulse Ox 98.5 F 125 H 16 95/55 L 98 01/29/17 10:16 01/29/17 10:16 01/29/17 10:16 01/29/17 10:16 01/29/17 10:16 Course - Vital Signs Vital signs: Temp Pulse Resp BP Pulse Ox 98.5 F 125 H 15 98/55 L 98 01/29/17 10:16 01/29/17 10:16 01/29/17 11:23 01/29/17 11:23 01/29/17 10:16 - Laboratory Result Diagrams: 01/29/17 10:40 01/29/17 10:40 Laboratory results interpreted by me: 01/29/17 01/29/17 10:40 10:40 WBC 13.5 H RBC 3.65 L Hgb 10.4 L Hct 31.4 L Seg Neuts % (Manual) 91 H Lymphocytes % (Manual) 4 L Abs Neuts (Manual) 12.3 H Sodium 134.8 L Potassium 2.7 L* Chloride 97 L Creatinine 1.42 H Est GFR ( Amer) 50 L Est GFR (Non-Af Amer) 42 L Glucose 122 H Albumin 3.3 L
--- NOTE | 2017-01-29 13:27 | RADIOLOGY REPORT (SQ) ---
EXAM DESCRIPTION: CTA CHEST COMPLETED DATE/TIME: 01/29/2017 1:02 pm REASON FOR STUDY: tachycardia COMPARISON: Radiographs from same date. TECHNIQUE: CT scan of the chest performed using helical scanning technique with dynamic intravenous contrast injection. Images reviewed with lung, soft tissue and bone windows. Reconstructed coronal and sagittal MPR images reviewed. Additional 3 dimensional post-processing performed to develop Maximal Intensity Projection images (ID P). All images stored on PACS. All CT scanners at this facility use dose modulation, iterative reconstruction, and/or weight based d osing when appropriate to reduce radiation dose to as low as reasonably achievable (ALARA). [facility]: Dose Right [facility]: CareDose [facility]: Dose Right [facility]: Teradose 4D [facility]: Motivano CONTRAST TYPE AND DOSE: contrast/concentration: Isovue 370.00 mg/ml; Total Contrast Delivered: 61.0 ml; Total Saline Delivered: 80.0 ml Contrast bolus optimized for the pulmonary arteries. Not diagnostic for the aorta. RENAL FUNCTION: None required. The patient is less than 50 years old. RADIATION DOSE: CT Rad equipment meets quality standard of care and radiation dose reduction techniq ues were employed. CTDIvol: 14.3 - 16.5 mGy. DLP: 555 mGy-cm. . LIMITATIONS: None. FINDINGS: LUNGS AND PLEURA: Abnormal soft tissue density along the anterior upper chest wall, roughl y underlying the left rib -sternal junction. This explains opacity on recent imaging. This soft tis jamilah density is concerning for malignancy. There is a small spiculated lesion measuring 1.6 cm in the left upper lobe. Medial right apex possible 6 mm nodule as well. AORTA AND GREAT VESSELS: No aneurysm. Contrast bolus not optimized for the aorta. HEART: No pericardial effusion. No significant coronary artery calcifications. PULMONARY ARTERIES: No emboli visualized in the main pulmonary arteries or the segmental branches. HILAR AND MEDIASTINAL STRUCTURES: Soft tissue density in the left upper lobe is confluent with densit y in the adjacent mediastinum, possible invasion with small nodes regionally. HARDWARE: None in the chest. UPPER ABDOMEN: No significant findings. Limited exam. THYROID AND OTHER SOFT TISSUES: No masses. No adenopathy. BONES: No acute or significant finding. 3D MIPS: Confirm above findings. OTHER: No other significant finding. IMPRESSION: 1. No pulmonary embolus. 2. Suspicious soft tissue mass in the left upper lobe with adj acent density in the mediastinum superiorly. At least 2 other nodules, 1 of which represents a spicu lated lesion in the left upper lobe. Findings should be considered concerning for malignancy, despit e the patient's age. COMMENT: Quality ID # [id number]: Final reports with documentation of one or more dose reduction techniques (e.g., Automated exposure control, adjustment of the mA and/or kV according to patient size, use of iterative reconstruction technique) TECHNICAL DOCUMENTATION: JOB ID: [id number] [employer]- All Rights Reserved
[2017-01-29] MEDS ORDERED: NORMAL SALINE 1000 ML 1,000 ML IV PRN (13:54)
[2017-01-29 15:05] VITALS: BP 96/63
--- NOTE | 2017-01-29 23:05 | EKG REPORT ---
SEVERITY:- BORDERLINE ECG - SINUS RHYTHM BORDERLINE T ABNORMALITIES, ANT-LAT LEADS : Confirmed by: Isidra Acosta 29-Jan-2017 23:03:59
== END 2017-01-29 15:06 | disposition home or self-care (01) ==
LOC: ER 10:09
DX: T14.8XXA Other injury of unspecified body region, initial encounter (principal); M54.9 Dorsalgia, unspecified; R10.2 Pelvic and perineal pain; W18.39XA Other fall on same level, initial encounter; Y93.G3 Activity, cooking and baking; R55 Syncope and collapse; R91.8 Other nonspecific abnormal finding of lung field; E87.6 Hypokalemia; R11.2 Nausea with vomiting, unspecified; Z21 Asymptomatic human immunodeficiency virus [HIV] infection status; Z86.711 Personal history of pulmonary embolism; Z79.01 Long term (current) use of anticoagulants; Z88.3 Allergy status to other anti-infective agents; Z91.040 Latex allergy status; Z88.0 Allergy status to penicillin
CPT/HCPCS: 93005; 99284; 96361; 96374; 96375; 36415; 82553; 82550; 83735; 84443; 85025; 80053; 84484; 71010; 72170; 71275; 93010; J1200; J2930; J2270; J2405; J7030; S0028

== ENCOUNTER → 2017-02-11 | Outpatient (CLI) | payer MEDICAID ==
[2017-02-14 19:37] LABS: % CD 4 POS LYMPH 5.1 % (30.8-58.5); ABSOLUTE CD 4 HELPER 87 /uL (359-1519); CD BASOPHILS 0 % (Not Estab.); CD EOSINOPHILS 1 % (Not Estab.); CD MONOCYTES 5 % (Not Estab.); CD NEUTROPHILS 83 % (Not Estab.); EOSINOPHILS (ABSOLUTE) 0.1 x10E3/uL (0.0-0.4); HEMOGLOBIN 10.2 g/dL (11.1-15.9); IMMATURE GRANULOCYTES 1 % (Not Estab.); LYMPHS(ABSOLUTE) 1.7 x10E3/uL (0.7-3.1); MCH 28.5 pg (26.6-33.0); MCV 86 fL (79-97); MONOCYTES(ABSOLUTE) 0.9 x10E3/uL (0.1-0.9); NEUTROPHILS(ABSOLUTE) 14.3 x10E3/uL (1.4-7.0); PLATELETS 281 x10E3/uL (150-379); RBC 3.58 x10E6/uL (3.77-5.28); RDW 14.5 % (12.3-15.4); WBC 17.2 x10E3/uL (3.4-10.8)
[2017-02-15 07:48] LABS: IMMATURE GRANULOCYTES (ABS) 0.1 x10E3/uL (0.0-0.1)
== END ==
LOC: OD 13:10
DX: B20 Human immunodeficiency virus [HIV] disease (principal); D64.9 Anemia, unspecified
CPT/HCPCS: 36415; 86361

== ENCOUNTER 2017-04-22 16:42 | Emergency (ER) | payer MEDICAID ==
[2017-04-22] MEDS ORDERED: NORMAL SALINE 1000 ML 1,000 ML IV ONE (17:17)
--- NOTE | 2017-04-22 17:18 | ER Document Report ---
ED Medical Screen (RME) - General Chief Complaint: Neck Problem Stated Complaint: LEFT LEG PAIN Time Seen by Provider: 04/22/17 17:10 Notes: RME DISCLOSURE I have seen this patient as part of a Rapid Medical Evaluation and, if applicable, placed any initially appropriate orders. The patient will be seen and fully evaluated, including a full history and physical exam, by a provider ( in Main ED or Fast Track) when a room becomes available. 36-year-old female PMH pulmonary embolism sent over from radiology where she had an ultrasound performed of the left lower extremity that shows a DVT. She is supposed to be on Eliquis for PE however stopped taking it 2-3 months ago because she did not think she needed it anymore and "my doctor had not mentioned it in a while". She also has a mass on her neck that has been progressively growing in size for the past 1 month. She initially thought also lymph node but it kept growing larger and larger. She states it does not hurt. She denies chest pain shortness of breath at this time. EXAM Large anterior neck swelling Tachycardic TRAVEL OUTSIDE OF THE [place] IN LAST 30 DAYS: No - Related Data Allergies/Adverse Reactions: iodine [Iodine] Allergy (Verified 04/22/17 16:46) latex [Latex] Allergy (Verified 04/22/17 16:46) Penicillins Allergy (Verified 04/22/17 16:46) povidone-iodine [From Betadine] Allergy (Verified 04/22/17 16:46) Soap [From Betadine] Allergy (Verified 04/22/17 16:46) Past Medical History - Social History Chew tobacco use (# tins/day): No Frequency of alcohol use: None Drug Abuse: None Renal/ Medical History: Denies: Hx Peritoneal Dialysis Psychiatric Medical History: Reports: Hx Depression Infectious Medical History: Reports: Hx HIV - STATES DX IN 2007 - HISTORY OF NON -COMPLIANCE WITH MEDS, COMPLIANT NOW Past Surgical History: Reports: Hx Tubal Ligation - Immunizations Hx Diphtheria, Pertussis, Tetanus Vaccination: No Physical Exam - Vital signs Vitals: Temp Pulse Resp BP Pulse Ox 99.2 F 116 H 16 83/54 L 98 04/22/17 16:57 04/22/17 16:57 04/22/17 16:57 04/22/17 16:57 04/22/17 16:57 Course - Vital Signs Vital signs: Temp Pulse Resp BP Pulse Ox 99.2 F 116 H 16 93/48 L 98 04/22/17 16:57 04/22/17 16:57 04/22/17 16:57 04/22/17 16:58 04/22/17 16:57
--- NOTE | 2017-04-22 18:40 | ER Document Report ---
ED General - General Chief Complaint: Neck Problem Stated Complaint: LEFT LEG PAIN Time Seen by Provider: 04/22/17 17:10 Mode of Arrival: Ambulatory Information source: Patient TRAVEL OUTSIDE OF THE [place] IN LAST 30 DAYS: No - HPI Patient complains to provider of: DVT LLE Onset: Just prior to arrival Onset/Duration: Sudden Quality of pain: No pain Recently seen / treated by doctor: Yes - seem today by PCP Notes: Patient is a 36-year-old -[place] who presented to the emergency department from the ultrasound department here after getting diagnosed with a left lower extremity DVT. Patient states she does not have any complaints besides the swelling in her neck area. States she was diagnosed with HIV in approximately 2007. She has been on 2 antiviral medications as well as Eliquis since May 2017 and she was diagnosed with DVT and PE. She does not recall why she has these blood clots. Patient states that she saw her primary medical doctor today and was sent here for an ultrasound. From the ultrasound department he told her to come here for her blood clot in her leg. Patient was on Eliquis but stopped taking it for an unknown reason. - Related Data Allergies/Adverse Reactions: iodine [Iodine] Allergy (Verified 04/22/17 16:46) latex [Latex] Allergy (Verified 04/22/17 16:46) Penicillins Allergy (Verified 04/22/17 16:46) povidone-iodine [From Betadine] Allergy (Verified 04/22/17 16:46) Soap [From Betadine] Allergy (Verified 04/22/17 16:46) Past Medical History - General Information source: Patient - Social History Smoking Status: Current Every Day Smoker Chew tobacco use (# tins/day): No Frequency of alcohol use: None Drug Abuse: None Lives with: Family - Patient has 4 children 12 and 13-year-old daughters and [id number] sons Family History: Reviewed & Not Pertinent, Hypertension, Malignancy Patient has suicidal ideation: No Patient has homicidal ideation: No - Past Medical History Cardiac Medical History: Reports: None Pulmonary Medical History: Reports: Other - PE EENT Medical History: Reports: None Neurological Medical History: Reports: None Endocrine Medical History: Reports: None Renal/ Medical History: Reports: None. Denies: Hx Peritoneal Dialysis Malignancy Medical History: Reports: None GI Medical History: Reports: None Musculoskeltal Medical History: Reports None Skin Medical History: Reports None Psychiatric Medical History: Reports: Hx Depression Traumatic Medical History: Reports: None Infectious Medical History: Reports: Hx HIV - STATES DX IN 2007 - HISTORY OF NON -COMPLIANCE WITH MEDS, COMPLIANT NOW Past Surgical History: Reports: Hx Tubal Ligation - Immunizations Hx Diphtheria, Pertussis, Tetanus Vaccination: No Review of Systems - Review of Systems Constitutional: No symptoms reported EENT: Other - Mass to neck area 2 weeks Cardiovascular: No symptoms reported Respiratory: No symptoms reported Gastrointestinal: No symptoms reported Genitourinary: No symptoms reported Female Genitourinary: No symptoms reported Musculoskeletal: No symptoms reported Skin: No symptoms reported Hematologic/Lymphatic: No symptoms reported Neurological/Psychological: No symptoms reported Physical Exam - Vital signs Vitals: Temp Pulse Resp BP Pulse Ox 99.2 F 116 H 16 83/54 L 98 04/22/17 16:57 04/22/17 16:57 04/22/17 16:57 04/22/17 16:57 04/22/17 16:57 - Notes Notes: PHYSICAL EXAMINATION: GENERAL: Well-appearing, well-nourished and in no acute distress. HEAD: Atraumatic, normocephalic. EYES: Pupils equal round and reactive to light, extraocular movements intact, conjunctiva are normal. No nystagmus. ENT: Nares patent, oropharynx clear without exudates. Moist mucous membranes. TMs within normal limits bilaterally. NECK: Normal range of motion, supple without lymphadenopathy. Patient has a 4 x 5 cm fluid filled mass which appears to be near the right lobe of her thyroid. It is nontender. LUNGS: Breath sounds clear to auscultation bilaterally and equal. No wheezes rales or rhonchi. HEART: Regular rate and rhythm without murmurs ABDOMEN: Soft, nontender, nondistended abdomen. No guarding, no rebound. No masses appreciated. Female : deferred Musculoskeletal: Normal range of motion, no pitting or edema. No cyanosis. NEUROLOGICAL: Cranial nerves grossly intact. Normal speech. Normal sensory, motor exams. Left lower extremity is neurovascularly intact. The calf is tender on that side with increased swelling compared to the right calf circumference. PSYCH: Normal mood, normal affect. SKIN: Warm, Dry, normal turgor, no rashes or lesions noted. Course - Re-evaluation Re-evalutation: 04/22/17 21:32 Labs- All tests 24 hr 04/22/17 04/22/17 04/22/17 18:44 18:44 18:44 WBC 9.8 RBC 2.85 L Hgb 8.8 L Hct 26.5 L MCV 93 MCH 30.9 MCHC 33.2 RDW 14.1 H Plt Count 248 Total Counted 100 Seg Neutrophils % Not Reportable Seg Neuts % (Manual) 84 H Lymphocytes % Not Reportable Lymphocytes % (Manual) 6 L Monocytes % Not Reportable Monocytes % (Manual) 9 Eosinophils % Not Reportable Eosinophils % (Manual) 1 Basophils % Not Reportable Basophils % (Manual) 0 Absolute Neutrophils Not Reportable Abs Neuts (Manual) 8.2 Absolute Lymphocytes Not Reportable Abs Lymphs (Manual) 0.6 Absolute Monocytes Not Reportable Abs Monocytes (Manual) 0.9 Absolute Eosinophils Not Reportable Absolute Eos (Manual) 0.1 Absolute Basophils Not Reportable Abs Basophils (Manual) 0.0 Toxic Granulation SLIGHT Platelet Comment ADEQUATE Anisocytosis SLIGHT PT 13.8 INR 0.99 APTT 32.5 Sodium 135.4 L Potassium 2.7 L* Chloride 100 Carbon Dioxide 25 Anion Gap 10 BUN 10 Creatinine 0.76 Est GFR ( Amer) > 60 Est GFR (Non-Af Amer) > 60 Glucose 73 L Calcium 8.0 L Troponin I TSH 04/22/17 04/22/17 18:44 18:44 WBC RBC Hgb Hct MCV MCH MCHC RDW Plt Count Total Counted Seg Neutrophils % Seg Neuts % (Manual) Lymphocytes % Lymphocytes % (Manual) Monocytes % Monocytes % (Manual) Eosinophils % Eosinophils % (Manual) Basophils % Basophils % (Manual) Absolute Neutrophils Abs Neuts (Manual) Absolute Lymphocytes Abs Lymphs (Manual) Absolute Monocytes Abs Monocytes (Manual) Absolute Eosinophils Absolute Eos (Manual) Absolute Basophils Abs Basophils (Manual) Toxic Granulation Platelet Comment Anisocytosis PT INR APTT Sodium Potassium Chloride Carbon Dioxide Anion Gap BUN Creatinine Est GFR ( Amer) Est GFR (Non-Af Amer) Glucose Calcium Troponin I < 0.012 TSH 1.[address] 04/22/17 17:14 IMPRESSION: Multifocal consolidation and Cavitary disease is present in the left upper lobe. There is an insinuating 7.6 x 5.1 x 3.2 cm rim enhancing fluid collection in the left anterior neck, this appears anterior and inferior to the thyroid, displacing the airway to the right of midline. An additional 3 x 3 x 1 cm rim enhancing fluid collection is present in the left peritracheal - paraesophageal soft tissues which insinuates between the left common carotid and subclavian arteries with the tip extending inferiorly to the prevascular station of the mediastinum -left upper lobe junction. Necrotic enlarged lymph nodes are present in the lower esophageal and upper abdominal retroperitoneal stations. No vascular occlusion is identified. No pulmonary arterial emboli. Additional small nodular areas are present in the right upper and lower lobes. No pleural effusion. These findings are most consistent with a severe infectious process, mycobacterial disease is a consideration. Chest/Abdomen CTA 04/22/17 17:17 IMPRESSION: Multifocal consolidation and Cavitary disease is present in the left upper lobe. There is an insinuating 7.6 x 5.1 x 3.2 cm rim enhancing fluid collection in the left anterior neck, this appears anterior and inferior to the thyroid, displacing the airway to the right of midline. An additional 3 x 3 x 1 cm rim enhancing fluid collection is present in the left peritracheal - paraesophageal soft tissues which insinuates between the left common carotid and subclavian arteries with the tip extending inferiorly to the prevascular station of the mediastinum -left upper lobe junction. Necrotic enlarged lymph nodes are present in the lower esophageal and upper abdominal retroperitoneal stations. No vascular occlusion is identified. No pulmonary arterial emboli. Additional small nodular areas are present in the right upper and lower lobes. No pleural effusion. These findings are most consistent with a severe infectious process, mycobacterial disease is a consideration. 04/22/17 22:09 Patient was accepted by Dr. Cassie Luna at [facility]. I did go over lab work as well as ultrasound and CT findings. Dr. Luna asked for a lactic acid as well as magnesium which were added. I did follow the [place] form. I did would not speak to the patient as well as her sister. I again reviewed findings of the ultrasound as well as the CAT scans and the lab work. Room giving the azithromycin and obtaining the lactic acid. Patient remains hemodynamically stable. She again states she is compliant with her medications. She states that she goes to the [facility]. Yesterday she was seen but they could not get any blood work to get her CD4 or viral load. She states she does not recall the last CD4 count or viral load results that she had done. - Vital Signs Vital signs: Temp Pulse Resp BP Pulse Ox 99.2 F 116 H 16 93/48 L 98 04/22/17 16:57 04/22/17 16:57 04/22/17 16:57 04/22/17 16:58 04/22/17 16:57 - Laboratory Result Diagrams: 04/22/17 18:44 04/22/17 18:44 Laboratory results interpreted by me: 04/22/17 04/22/17 18:44 18:44 RBC 2.85 L Hgb 8.8 L Hct 26.5 L RDW 14.1 H Seg Neuts % (Manual) 84 H Lymphocytes % (Manual) 6 L Sodium 135.4 L Potassium 2.7 L* Glucose 73 L Calcium 8.0 L - Diagnostic Test Radiology reviewed: Image reviewed, Reports reviewed Critical Care Note - Critical Care Note Total time excluding time spent on procedures (mins): 45 Comments: 45 minutes of critical care time spent in direct contact evaluating and reevaluating the patient, treating symptoms, reviewing labs and studies and speaking with family and consultants excluding any procedures Discharge - Discharge Clinical Impression: HIV (human immunodeficiency virus infection), Noncompliance, Hypokalemia, Pulmonary cavitary lesion, Neck abscess, Anemia of chronic disease Disposition: [facility] Referrals: MERCEDES BURGESS FNP [Primary Care Provider] - Follow up as needed
[2017-04-22 19:11] LABS: HEMATOCRIT 26.5 % (36.0-47.0); HEMOGLOBIN 8.8 g/dL (12.0-15.5); MEAN CORPUSCULAR HEMOGLOBIN 30.9 pg (27.0-33.4); MEAN CORPUSCULAR HGB CONC 33.2 g/dL (32.0-36.0); MEAN CORPUSCULAR VOLUME 93 fl (80-97); PLATELET COUNT 248 10^3/uL (150-450); RED BLOOD COUNT 2.85 10^6/uL (3.72-5.28); RED CELL DISTRIBUTION WIDTH 14.1 % (11.5-14.0); WHITE BLOOD COUNT 9.8 10^3/uL (4.0-10.5)
[2017-04-22 19:17] LABS: INTERNATIONAL RATION (INR) 0.99; PROTHROMBIN TIME 13.8 SEC (11.4-15.4)
[2017-04-22 19:18] LABS: PARTIAL THROMBOPLASTIN TIME 32.5 SEC (23.5-35.8)
[2017-04-22 19:26] LABS: ABSOLUTE LYMPHOCYTES# (MANUAL) 0.6 10^3/uL (0.5-4.7); ABSOLUTE MONOCYTES # (MANUAL) 0.9 10^3/uL (0.1-1.4); ABSOLUTE NEUTROPHILS# (MANUAL) 8.2 10^3/uL (1.7-8.2); BASOPHILS % (MANUAL) 0 % (0-2); EOSINOPHILS % (MANUAL) 1 % (0-6); LYMPHOCYTES % (MANUAL) 6 % (13-45); MONOCYTES % (MANUAL) 9 % (3-13); SEGMENTED NEUTROPHILS % (MAN) 84 % (42-78); TOTAL CELLS COUNTED 100
[2017-04-22 19:30] LABS: ANION GAP 10 (5-19); BLOOD UREA NITROGEN 10 mg/dL (7-20); CARBON DIOXIDE 25 mmol/L (22-30); CHLORIDE 100 mmol/L (98-107); GLUCOSE 73 mg/dL (75-110); SODIUM 135.4 mmol/L (137-145)
[2017-04-22 19:31] LABS: ANISOCYTOSIS SLIGHT; PLATELET COMMENT ADEQUATE; TOXIC GRANULATION SLIGHT
[2017-04-22 19:33] LABS: POTASSIUM 2.7 mmol/L (3.6-5.0)
[2017-04-22] MEDS ORDERED: POTASSIUM CHLORIDE 10 MEQ TABLET.SA PO ONE (19:43)
[2017-04-22] MEDS ORDERED: POTASSIUM CHLORIDE IV PRN ×2 (19:44)
[2017-04-22] MEDS ORDERED: DEXTROSE 5% IV PRN ×2 (19:44)
[2017-04-22] MEDS ORDERED: LACTATED RINGERS IV PRN ×2 (19:44)
--- NOTE | 2017-04-22 20:51 | RADIOLOGY REPORT (SQ) ---
EXAM DESCRIPTION: CT SOFT TISSUE NECK WITH; CTA CHEST COMPLETED DATE/TIME: 04/22/2017 8:26 pm REASON FOR STUDY: anterior neck mass; eval further; tachy/hypotensive; eval PE COMPARISON: None. TECHNIQUE: Post IV contrasted scanning from skull base through lung bases with review of bone, soft tissue and lung windows. Reconstructed coronal and sagittal MPR images reviewed. All images stored on PACS. All CT scanners at this facility use dose modulation, iterative reconstruction, and/or weight based d osing when appropriate to reduce radiation dose to as low as reasonably achievable (ALARA). [facility]: Dose Right [facility]: CareDose [facility]: Dose Right [facility]: Teradose 4D [facility]: [employer] CONTRAST TYPE AND DOSE: contrast/concentration: Isovue 370.00 mg/ml; Total Contrast Delivered: 80.0 ml; Total Saline Delivered: 65.0 ml RENAL FUNCTION: None required. The patient is less than 50 years old. RADIATION DOSE: CT Rad equipment meets quality standard of care and radiation dose reduction techniq ues were employed. CTDIvol: 5.7 - 11.2 mGy. DLP: 569 mGy-cm. . LIMITATIONS: None. FINDINGS: Multifocal consolidation and Cavitary disease is present in the left upper lobe. There is an insinuating 7.6 x 5.1 x 3.2 cm rim enhancing fluid collection in the left anterior neck, this appears anterior and inferior to the thyroid, displacing the airway to the right of midline. An additional 3 x 3 x 1 cm rim enhancing fluid collection is present in the left peritracheal -paraesop hageal soft tissues which insinuates between the left common carotid and subclavian arteries with the tip extending inferiorly to the prevascular station of the mediastinum -left upper lobe junction. N ecrotic enlarged lymph nodes are present in the lower esophageal and upper abdominal retroperitoneal stations. No vascular occlusion is identified. No pulmonary arterial emboli. Additional small nodular areas are present in the right upper and lower lobes. No pleural effusion. OTHER: No other significant finding. IMPRESSION: Multifocal consolidation and Cavitary disease is present in the left upper lobe. There i s an insinuating 7.6 x 5.1 x 3.2 cm rim enhancing fluid collection in the left anterior neck, this ap pears anterior and inferior to the thyroid, displacing the airway to the right of midline. An additi onal 3 x 3 x 1 cm rim enhancing fluid collection is present in the left peritracheal -paraesophageal soft tissues which insinuates between the left common carotid and subclavian arteries with the tip ex tending inferiorly to the prevascular station of the mediastinum -left upper lobe junction. Necroti c enlarged lymph nodes are present in the lower esophageal and upper abdominal retroperitoneal statio ns. No vascular occlusion is identified. No pulmonary arterial emboli. Additional small nodular areas are present in the right upper and lower lobes. No pleural effusion. These findings are most consistent with a severe infectious process, mycobacterial disease is a consi deration. TECHNICAL DOCUMENTATION: JOB ID: [id number] [place]-72 Quality ID # 436: Final reports with documentation of one or more dose reduction techniques (e.g., Au tomated exposure control, adjustment of the mA and/or kV according to patient size, use of iterative reconstruction technique) 2010 [employer]- All Rights Reserved Reading location - IP/workstation name: [email or web address]
--- NOTE | 2017-04-22 20:51 | RADIOLOGY REPORT (SQ) ---
EXAM DESCRIPTION: CT SOFT TISSUE NECK WITH; CTA CHEST COMPLETED DATE/TIME: 04/22/2017 8:26 pm REASON FOR STUDY: anterior neck mass; eval further; tachy/hypotensive; eval PE COMPARISON: None. TECHNIQUE: Post IV contrasted scanning from skull base through lung bases with review of bone, soft tissue and lung windows. Reconstructed coronal and sagittal MPR images reviewed. All images stored on PACS. All CT scanners at this facility use dose modulation, iterative reconstruction, and/or weight based d osing when appropriate to reduce radiation dose to as low as reasonably achievable (ALARA). [facility]: Dose Right [facility]: CareDose [facility]: Dose Right [facility]: Teradose 4D [facility]: [employer] CONTRAST TYPE AND DOSE: contrast/concentration: Isovue 370.00 mg/ml; Total Contrast Delivered: 80.0 ml; Total Saline Delivered: 65.0 ml RENAL FUNCTION: None required. The patient is less than 50 years old. RADIATION DOSE: CT Rad equipment meets quality standard of care and radiation dose reduction techniq ues were employed. CTDIvol: 5.7 - 11.2 mGy. DLP: 569 mGy-cm. . LIMITATIONS: None. FINDINGS: Multifocal consolidation and Cavitary disease is present in the left upper lobe. There is an insinuating 7.6 x 5.1 x 3.2 cm rim enhancing fluid collection in the left anterior neck, this appears anterior and inferior to the thyroid, displacing the airway to the right of midline. An additional 3 x 3 x 1 cm rim enhancing fluid collection is present in the left peritracheal -paraesop hageal soft tissues which insinuates between the left common carotid and subclavian arteries with the tip extending inferiorly to the prevascular station of the mediastinum -left upper lobe junction. N ecrotic enlarged lymph nodes are present in the lower esophageal and upper abdominal retroperitoneal stations. No vascular occlusion is identified. No pulmonary arterial emboli. Additional small nodular areas are present in the right upper and lower lobes. No pleural effusion. OTHER: No other significant finding. IMPRESSION: Multifocal consolidation and Cavitary disease is present in the left upper lobe. There i s an insinuating 7.6 x 5.1 x 3.2 cm rim enhancing fluid collection in the left anterior neck, this ap pears anterior and inferior to the thyroid, displacing the airway to the right of midline. An additi onal 3 x 3 x 1 cm rim enhancing fluid collection is present in the left peritracheal -paraesophageal soft tissues which insinuates between the left common carotid and subclavian arteries with the tip ex tending inferiorly to the prevascular station of the mediastinum -left upper lobe junction. Necroti c enlarged lymph nodes are present in the lower esophageal and upper abdominal retroperitoneal statio ns. No vascular occlusion is identified. No pulmonary arterial emboli. Additional small nodular areas are present in the right upper and lower lobes. No pleural effusion. These findings are most consistent with a severe infectious process, mycobacterial disease is a consi deration. TECHNICAL DOCUMENTATION: JOB ID: [id number] [place]-72 Quality ID # [id number]: Final reports with documentation of one or more dose reduction techniques (e.g., Au tomated exposure control, adjustment of the mA and/or kV according to patient size, use of iterative reconstruction technique) 2010 [employer]- All Rights Reserved Reading location - IP/workstation name: [email or web address]
[2017-04-22] MEDS ORDERED: AZITHROMYCIN INJ 500 MG VIAL IV ONE (21:27)
[2017-04-22] MEDS ORDERED: APIXABAN 5 MG TABLET PO ONE (21:27)
[2017-04-22 22:23] VITALS: BP 98/47
[2017-04-22] MEDS ORDERED: FAMOTIDINE INJ/PF 20 MG/2 ML SDV IV ONE (22:58)
== END 2017-04-23 | disposition short-term general hospital (02) ==
LOC: ER 16:42
DX: B20 Human immunodeficiency virus [HIV] disease (principal); E87.6 Hypokalemia; L02.11 Cutaneous abscess of neck; D63.8 Anemia in other chronic diseases classified elsewhere; J98.4 Other disorders of lung; M79.662 Pain in left lower leg; F17.200 Nicotine dependence, unspecified, uncomplicated; Z91.040 Latex allergy status; Z88.0 Allergy status to penicillin; Z98.51 Tubal ligation status
CPT/HCPCS: 99291; 96361; 96365; 96366; 96367; 36415; 83735; 84443; 85025; 85610; 85730; 80048; 84484; 83605; 70491; 71275; J3480; J7030; J0456

== ENCOUNTER → 2017-04-22 | Outpatient (CLI) | payer MEDICAID ==
--- NOTE | 2017-04-22 17:13 | XCELERA REPORT ---
[address] [address] Lower Extremity Venous Evaluation Name: JOSE LUIS GU Age: 36 yrs Gender: Female : 1980 Patient Status: Outpatient Patient Location: II Study Date: 04/22/2017 04:07 PM Procedure: Color flow and duplex imaging of the veins of the left lower extremity as well as the right Common Femoral vein. Reason For Study: LLE SWELLING AND PAIN Ordering Physician: LULY BRAXTON Performed By: Trisha Huertas Right Sided Venous Evaluation The right common femoral vein is fully compressible. Spontaneous and phasic flow is present in the right common femoral vein. Left Sided Venous Evaluation Abnormal vessel filling , lack of compression and Colour flow noted from the Common Femoral to the Popliteal vein. Some recanalization. Critical Findings Discussed with Sandrine at [facility] office at about 1629. concurred with sending to the Emergency Room at [place]. Discussed with ER docs as well. Interpretation Summary Extensive DVT in the left lower extremity. Mostly sub acute to old. : LULY BRAXTON > Rafael Jack
== END ==
LOC: II 15:49
PROVIDERS: ATTEND Nurse Practitioner
DX: I82.492 Acute embolism and thrombosis of other specified deep vein of left lower extremity (principal); R22.1 Localized swelling, mass and lump, neck; M79.89 Other specified soft tissue disorders
CPT/HCPCS: 93971